=== PATIENT | female | born 1965 | race Caucasian/White ===

== ENCOUNTER → 2018-03-20 10:31 | Outpatient (CLI) | payer OTHER, MEDICAID, SELFPAY ==
--- NOTE | 2018-03-20 10:35 | DI.RAD.S_ITS ---
PROCEDURE: XR CHEST 2V INDICATIONS: MODERATE PERSISTENT ASTHMA TECHNIQUE: 2 views of the chest were acquired. COMPARISON: [facility], , CHEST 2 VIEW, 01/26/2017, 11:52. FINDINGS: Surgical changes and devices: None. Lungs and pleura: No pleural effusions or pneumothorax. Lungs are clear. Lungs are hyperinflated. Mediastinum: Mediastinal contours are normal. Heart size is normal. Bones and chest wall: No suspicious bony abnormalities. Soft tissues appear unremarkable. IMPRESSION: No acute pulmonary process. Dictated by: Sailaja Vieyra M.D. on 03/20/2018 at 15:43 Approved by: Sailaja Vieyra M.D. on 03/20/2018 at 15:44
[2018-03-20 12:12] LABS: Add Manual Diff / Slide Review NO; Basophils Percent Auto 0.9 % (0-2); Hematocrit 46.3 % (36-46); Hemoglobin 16.1 g/dL (12.0-16.0); Lymphocytes Percent Auto 18.3 % (25-40); Mean Corpuscular HGB Conc 34.7 % (30-36); Mean Corpuscular Hemoglobin 32.4 PG (26-34); Mean Corpuscular Volume 93.2 fL (80-100); Monocytes Percent Auto 5.5 % (3-14); Neutrophils Absolute Auto 3900 /uL (3000-5900); Neutrophils Percent Auto 51.7 % (50-75); Platelet Count 361 X10^3/uL (150-400); Red Blood Cell Count 4.97 X10^6/uL (4.0-5.2); Red Cell Distribution Width 12.6 % (11.6-14.8); White Blood Cell Count 7.6 X10^3/uL (4.5-11.0)
[2018-03-20 12:13] LABS: Eosinophils Percent Auto 23.6 % (2-4)
== END ==
PROVIDERS: PCP Internal Medicine; Visit Provider Internal Medicine
DX: J45.40 Moderate persistent asthma, uncomplicated (principal)
CPT/HCPCS: 36415; 71046; 85025

== ENCOUNTER 2018-09-04 14:47 | Emergency (ER) | payer OTHER, MEDICAID, SELFPAY ==
[2018-09-04 15:01] VITALS: BP 155/98; PULSE 94; RESP 18; TEMP 36.7; O2SAT 94; BMI 26.6
--- NOTE | 2018-09-04 15:14 | ED.SOB ---
HPI - SOB/Dyspnea General Chief Complaint: Shortness of Breath/Dyspnea Stated Complaint: DIFICULTY BREATHING Time Seen by Provider: 09/04/18 15:06 Source: patient Mode of arrival: ambulatory Limitations: no limitations History of Present Illness 53-year-old female comes emergency department with complaint shortness of breath patient states that she has asthma she states her asthma symptoms have been problematic for about 5 months she has been feeling short of breath. Patient 3 doses of prednisone the last 1 being a month ago. She feels better when she has the prednisone but once she stops that she becomes symptomatic again. She has Serevent at home she was using QVAR and she felt well controlled at that time. But it became too expensive with her insurance and she can't afford a steroid inhaler. She denies any fevers, she has had some nasal congestion but states she also has seasonal allergies. She does not take any antihistamine daily. Patient states that she feels tight in her chest. It is worse with exertion but stays also even when she is seated. Even at night time she has a hard time. Patient continues to have cough mostly with clear sputum at times. No hemoptysis. No swelling in her lower extremities. Her parents both had coronary artery disease and at age 84 of a stroke and her father at 73 of a stroke. She has 7 siblings none of whom have any heart disease, lung disease for blood clots that she is aware of. She does smoke she does not drink alcohol or use any street drugs. She does not have any other past medical history denies any prior surgeries. Barbara Dumont as her primary care. Related Data Home Medications Medication Instructions Recorded Confirmed salmeterol [Serevent Diskus] 1 puff INHALATION BID 09/04/18 09/04/18 Previous Rx's Medication Instructions Recorded albuterol sulfate 2 puff INHALATION Q4-6H PRN #8 gram 09/04/18 beclomethasone dipropionate [Qvar 1 puff INHALATION BID #10.6 gram 09/04/18 RediHaler] prednisone See Rx Instructions .ROUTE 09/04/18 .COMPLEX #28 tab Allergies Allergy/AdvReac Type Severity Reaction Status Date / Time No Known Drug Allergies Allergy Verified 09/04/18 15:01 Review of Systems Review of Systems ROS Unobtainable: All systems reviewed & are unremarkable except as noted in HPI and below Constitutional Denies chills, Denies fever(s), Denies lethargy and Denies weakness ENT Ears, Nose, Mouth, and Throat: Reports nasal congestion and Denies sinus pressure Cardiovascular Denies chest pain, Denies chest pain at rest, Denies diaphoresis, Denies syncope, Denies pedal edema, Denies edema, Denies irregular heart rhythm, Denies lightheadedness, Denies palpitations, Reports dyspnea, Reports dyspnea on exertion and Denies orthopnea Respiratory Denies change in phlegm color, Denies chest congestion, Reports cough, Denies excessive phlegm production, Denies pain on inspiration, Denies pain with cough, Reports dyspnea, Reports dyspnea on exertion and Reports wheezing Gastrointestinal Gastrointestinal: Denies abdominal pain, Denies change in bowel habits, Denies diarrhea, Denies nausea and Denies vomiting Neurologic Denies syncope and Denies weakness Endocrine Denies palpitations Allergic/Immunologic Reports wheezing PFSH Medical History Asthma (Chronic) Social History Smoking Status: Never smoker Family History Mother No problems noted. Father No problems noted. Social History Smoking Status: Never smoker substance use type: does not use Exam Narrative Exam Narrative: GEN: well nourished, well appearing female, alert and oriented x 3, patient appears to be in mild distress. Patient is tearful on exam. HEENT: Atraumatic, pupils are equal round reactive to light, extraocular movements are intact, nares are clear, TMs are clear with no fluid, there is no conjunctival pallor. Throat is clear without any exudates, erythema, tonsillar enlargement or uvular deviation HEART: Regular rate and rhythm without murmur, clicks, rubs. LUNGS:Lungs clear to auscultation, no wheezes, rales, crackles, chest moves symmetrically, no tachypnea, no accessory muscle use. Speaks in full sentences. ABD:bowel sounds normal, soft, non-tender, no guarding, rebound, rigidity, no masses noted, no hepatosplenomegaly :No CVA tenderness MSCL: Non-tender, no muscle atrophy, muscles strength 5/5 upper and lower extremities, full range of motion, normal gait NEURO:CN 2-12 intact, sensation normal. Initial Vital Signs Initial Vital Signs: Vital Signs Temperature 98.1 F 09/04/18 15:01 Pulse Rate 94 H 09/04/18 15:01 Respiratory Rate 18 09/04/18 15:01 Blood Pressure 155/98 H 09/04/18 15:01 Pulse Oximetry 94 09/04/18 15:01 Scores HEART Score Heart Score history: Slightly Suspicious Heart Score EKG: Normal Heart Score Age: 45-64 years old Heart Score risk factors: 1-2 risk factors Heart Score troponin: < or = to normal limit Heart Score Total: 2 Course Orders Ordered: ED Orders 09/04/18 15:16 XR chest 2V Stat EKG-12 Lead Stat 09/04/18 15:35 B Type Natriuretic Peptide Stat Basic Metabolic Panel Stat Complete Blood Count AUTO DIFF Stat D Dimer Stat Troponin & CK Cardiac Panel Stat Discontinued Medications Albuterol/Ipratropium (Duoneb) 3 ml INH NOW ONE Stop: 09/04/18 15:31 Last Admin: 09/04/18 15:47 Dose: 3 ml Methylprednisolone (Solu-Medrol 125 Mg Vial) 125 mg IV NOW ONE Stop: 09/04/18 15:31 Last Admin: 09/04/18 15:45 Dose: 125 mg Vital Signs - 8 hr 09/04/18 15:01 09/04/18 15:51 09/04/18 16:15 Temperature 98.1 F Pulse Rate 94 H 73 72 Respiratory Rate 18 16 Blood Pressure 155/98 H Blood Pressure [Right Arm] 151/77 H Pulse Oximetry 94 96 95 09/04/18 17:00 09/04/18 17:25 Temperature Pulse Rate 73 76 Respiratory Rate 18 Blood Pressure 124/67 Blood Pressure [Right Arm] 124/67 Pulse Oximetry 93 95 MDM - SOB/Dyspnea Lab Data Attestation: I reviewed the patient's lab results. Result diagrams: 09/04/18 15:35 09/04/18 15:35 Lab Results 09/04/18 09/04/18 09/04/18 Range/Units 15:35 15:35 15:35 WBC 7.7 (4.5-11.0) X10^3/uL RBC 4.78 (4.0-5.2) X10^6/uL Hgb 15.2 (12.0-16.0) g/dL Hct 43.8 (36-46) % MCV 91.5 (80-100) fL MCH 31.7 (26-34) PG MCHC 34.6 (30-36) % RDW 13.3 (11.6-14.8) % Plt Count 356 (150-400) X10^3/uL Neut % (Auto) Not Reportable Lymph % (Auto) Not Reportable Thomas % (Auto) Not Reportable Eos % (Auto) Not Reportable Baso % (Auto) Not Reportable Lymph # (Auto) Not Reportable Thomas # (Auto) Not Reportable Baso # (Auto) Not Reportable Total Counted 100 Seg Neutrophils % 49.0 (38-70) % Band Neutrophils % 1.0 L (3-7) % Lymphocytes % (Manual) 21.0 L (25-45) % Monocytes % (Manual) 6.0 (2-11) % Eosinophils % (Manual) 23.0 H (2-4) % Neutrophils # (Manual) 3850 (6237-8487) /uL RBC Morphology Normal morphology D-Dimer < 200 (<230) ng/mL Sodium 139 (137-145) mmol/L Potassium 4.1 (3.4-5.1) mmol/L Chloride 104 (98-107) mmol/L Carbon Dioxide 24 (22-32) mmol/L BUN 8 (7-17) mg/dL Creatinine 0.70 (0.52-1.04) mg/dL Estimated GFR > 60.0 (>60) mL/min BUN/Creatinine Ratio 11.4 (6-22) Glucose 103 H (70-100) mg/dL Calcium 9.8 (8.4-10.2) mg/dL Total Creatine Kinase 57 (30-135) U/L CK-MB (CK-2) TNP CK-MB (CK-2) Rel Index TNP Troponin I < 0.012 (0.01-0.034) ng/mL B-Natriuretic Peptide < 100 (<100) Imaging Data Chest x-ray: Radiologist's impression: Chart Viewer Diagnostics DATE TYPE STATUS AUTHOR Hx 09/04/18 15:16 Sailaja Vieyra 03/20/18 10:35 Sailaja Vieyra Angela R 53, F0 1965 REG ER, ED.LOC - Main ED: R10 165.1cm 72.575kg BMI: 26.6kg/m? Shortness of Breath/Dyspnea Search Chart No Data to Display Today 15:01 Margarita Ramirez F [address] [address] XRay Report Signed Patient: Margarita Ramirez RMR#: [id number] : 1965Acct:[id number] Age/Sex: 53 / FDate of Service: 09/04/18 Loc: ED Accession Number: [id number] Procedure: XR chest 2V Ordering Provider: Coty Mcfarland D.O. PROCEDURE: XR CHEST 2V INDICATIONS: shortness of breath TECHNIQUE: 2 views of the chest were acquired. COMPARISON: [facility], , XR CHEST 2V, 03/20/2018, 10:35. FINDINGS: Surgical changes and devices: None. Lungs and pleura: Lungs are clear. No pleural effusions or pneumothorax. Mediastinum: Mediastinal contours are normal. Heart size is normal. Bones and chest wall: No suspicious bony abnormalities. Soft tissues appear unremarkable. IMPRESSION: No acute pulmonary process. Dictated by: Sailaja Vieyra M.D. on 09/04/2018 at 15:44 Approved by: Sailaja Vieyra M.D. on 09/04/2018 at 15:44 ECG Data Attestation: I personally reviewed and interpreted this ECG as follows: Prior ECG tracings: not available for review Interpretation: Sinus rhythm with a rate of 91 p.r. interval 128 QRS 82 and QTC of 395. No ST elevation or depression appreciated MDM Narrative Medical decision making narrative: After discussion with the patient I suspect her dyspnea is her asthma exacerbation. She was her description well controlled while she was on a steroid inhaler. Patient's lab work does not show any acute alterations her chest x-ray is clear. She does not have any risk factors for PE at this time. Patient's heart score is by her description she improves when she is on steroids and steroid inhaler suspect that her asthma is just not well controlled. Patient does have insurance and states that they will cover steroid inhalers for a month or 2 and then deny her coverage. Discussed to continue with her physician to facilitate prior office for her medication. In the meantime will do another short dose of prednisone but we did discuss that the risks for recurrent prednisone such as osteoporosis and other issues it is not a good long-term solution. Patient states she is also out of her regular albuterol which was refilled as well. Discharge Plan Departure Patient Disposition: Home Clinical Impression: Asthma with exacerbation Discharge Date/Time: 09/04/18 17:26 Interventions: ED Discharge Assessment Last Done: 09/04/18 17:25 Instructions: DI for Asthma -- Adult Activity Restrictions/Additional Instructions: Follow up with your primary care physician in next 3-5 days for recheck. Continue albuterol every 4 hours as needed for shortness of breath. Take steroids as prescribed until gone. Continue zyrtec once daily Return to the ER for fevers greater than 100.4F, worsening shortness of breath, chest pain or pressure, passing out, persistent vomiting, swelling of her lower extremities or other new or concerning symptoms. Prescriptions: New prednisone 10 mg tablet See Rx Instructions .ROUTE .COMPLEX Qty: 28 RF: 0 Qvar RediHaler 40 mcg/actuation HFA aerosol breath activated 1 puff INHALATION BID Qty: 10.6 RF: 0 albuterol sulfate 90 mcg/actuation HFA aerosol inhaler 2 puff INHALATION Q4-6H PRN (Reason: shortness of breath or wheezing) Qty: 8 RF: 0 No Action Serevent Diskus 50 mcg/dose blister with device 1 puff Inhalation BID RF: 0 Referrals: Barbara Dumont MD [Primary Care Provider] -
[2018-09-04] MEDS: methylPREDNISolone 125 MG/2 ML VIAL IV (15:45)
[2018-09-04] MEDS: ALBUTEROL/IPRATROPIUM 3 ML AMPUL INH (15:47)
[2018-09-04 15:50] LABS: Hematocrit 43.8 % (36-46); Hemoglobin 15.2 g/dL (12.0-16.0); Mean Corpuscular HGB Conc 34.6 % (30-36); Mean Corpuscular Hemoglobin 31.7 PG (26-34); Mean Corpuscular Volume 91.5 fL (80-100); Platelet Count 356 X10^3/uL (150-400); Red Blood Cell Count 4.78 X10^6/uL (4.0-5.2); Red Cell Distribution Width 13.3 % (11.6-14.8); White Blood Cell Count 7.7 X10^3/uL (4.5-11.0)
[2018-09-04 15:51] VITALS: PULSE 73; RESP 16; O2SAT 96
[2018-09-04 15:52] LABS: Add Manual Diff / Slide Review YES
[2018-09-04 15:56] LABS: BUN Creatinine Ratio 11.4 (6-22); Blood Urea Nitrogen 8 mg/dL (7-17); Calcium 9.8 mg/dL (8.4-10.2); Carbon Dioxide 24 mmol/L (22-32); Chloride 104 mmol/L (98-107); Creatine Kinase 57 U/L (30-135); Estimated Glomerular Filt Rate > 60.0 mL/min (>60); Glucose 103 mg/dL (70-100); HEMOLYSIS < 15 (0-50); Potassium 4.1 mmol/L (3.4-5.1); Sodium 139 mmol/L (137-145)
[2018-09-04 15:58] LABS: D Dimer < 200 ng/mL (<230)
[2018-09-04 16:01] LABS: B Type Natriuretic Peptide < 100 (<100)
[2018-09-04 16:08] LABS: Troponin I < 0.012 ng/mL (0.01-0.034)
[2018-09-04 16:09] LABS: Neutrophils Absolute Manual 3850 /uL (3000-5900); Total Cells Counted 100
[2018-09-04 16:10] LABS: RBC Morphology Normal Morphology
[2018-09-04 16:15] VITALS: BP 151/77; PULSE 72; O2SAT 95
[2018-09-04 17:00] VITALS: BP 124/67; PULSE 73; O2SAT 93
[2018-09-04 17:25] VITALS: BP 124/67; PULSE 76; RESP 18; O2SAT 95
== END 2018-09-04 17:26 | disposition home or self-care (01) ==
PROVIDERS: Emergency Provider Emergency Medicine; Family Provider Internal Medicine; PCP Internal Medicine
DX: J45.901 Unspecified asthma with (acute) exacerbation (principal)
CPT/HCPCS: 36591; 71046; 80048; 82550; 83880; 84484; 85025; 85379; 93005; 94640; 96374; 99283; 99285; J2930

== ENCOUNTER → 2019-03-16 09:14 | Outpatient (CLI) | payer OTHER, MEDICAID, SELFPAY | PROVIDERS: Family Provider Internal Medicine; PCP Internal Medicine; Visit Provider Physician Assistant | DX: R30.0 Dysuria (principal) | CPT/HCPCS: 87086 ==

== ENCOUNTER → 2020-06-09 12:33 | Outpatient (CLI) | payer OTHER, MEDICAID, SELFPAY | PROVIDERS: Family Provider Internal Medicine; PCP Internal Medicine; Visit Provider Physician Assistant | DX: R30.0 Dysuria (principal) | CPT/HCPCS: 87077; 87086; 87186 ==

== ENCOUNTER → 2020-10-14 07:34 | Outpatient (CLI) | payer OTHER, MEDICAID, SELFPAY | PROVIDERS: Family Provider Internal Medicine; PCP Internal Medicine; Visit Provider Student in an Organized Health Care Education/Training Program | DX: R30.0 Dysuria (principal) | CPT/HCPCS: 87077; 87086; 87186 ==

== ENCOUNTER → 2021-08-19 09:57 | Outpatient (CLI) | payer OTHER, MEDICAID, SELFPAY | PROVIDERS: Family Provider Internal Medicine; PCP Internal Medicine; Visit Provider Nurse Practitioner Family | DX: R30.0 Dysuria (principal) | CPT/HCPCS: 81002; 87077; 87086; 87186 ==

== ENCOUNTER → 2021-12-23 08:34 | Outpatient (CLI) | payer OTHER, MEDICAID, SELFPAY | PROVIDERS: Family Provider Internal Medicine; PCP Internal Medicine; Visit Provider Physician Assistant | DX: N39.0 Urinary tract infection, site not specified (principal) | CPT/HCPCS: 81002; 87077; 87086; 87185; 87186 ==

== ENCOUNTER → 2022-06-15 09:21 | Outpatient (CLI) | payer OTHER, MEDICAID, SELFPAY | PROVIDERS: Visit Provider Registered Nurse | DX: R30.0 Dysuria (principal) | CPT/HCPCS: 81002; 87077; 87086; 87186 ==

== ENCOUNTER 2022-07-29 22:06 | Inpatient (IN) | payer OTHER, MEDICAID, SELFPAY ==
--- NOTE | 2022-07-29 22:10 | DI.RAD.S_ITS ---
PROCEDURE: XR HIP W PEL IF DONE LT 2V INDICATIONS: fall with pain in hip TECHNIQUE: AP pelvis with lateral view(s) of the left hip(s). COMPARISON: [facility], , [facility] 2V W PEL IF PERFORMED, 07/22/2016, 14:04. FINDINGS: Bones: Nearly nondisplaced intertrochanteric left hip fracture. No femoroacetabular joint dislocation. There are severe degenerative changes in the right femoroacetabular joint with flattening of the femoral head, [id number], subcortical sclerosis and spurring. No visible pelvic fractures. Soft tissues: The visualized bowel gas pattern is normal. No suspicious soft tissue calcifications. IMPRESSION: 1. Nondisplaced intertrochanteric left hip fracture. 2. 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 Dictated by: Kaleigh Pulido M.D. on 07/30/2022 at 0:02 Approved by: Kaleigh Pulido M.D. on 07/30/2022 at 0:03
[2022-07-29 22:11] VITALS: BP 160/79; PULSE 78; PULSE 80; RESP 16; TEMP 36.7; O2SAT 99; BMI 29.2
[2022-07-29 22:31] VITALS: PULSE 77; O2SAT 97
--- NOTE | 2022-07-29 22:41 | ED.LOWEXIN ---
HPI - Extremity Injury (Lower) General Chief Complaint: Extremity Injury, Lower Stated Complaint: GLF/Hip Pain Time Seen by Provider: 07/29/22 22:34 Source: patient Mode of arrival: EMS Limitations: no limitations History of Present Illness HPI Narrative: This is a 57-year-old female with history of asthma who uses Advair inhaler, patient was at a birthday [employer] she states she was seated in a chair they were wrestling with 2 boys and she fell out of the chair on her left hip onto hardwood floor. She states immediate pain. No numbness or tingling. Any sort of movement is painful. She denies other injuries. Denies hitting her head no neck or back pain. No chest pain or shortness of breath, no nausea or vomiting, no GI or urinary symptoms. She states no pain or injury to her other extremities or further down in her leg. Patient took some ibuprofen. She has not had any other pain medication. No tobacco, occasional alcohol, no illicit. She states she is supposed to her right hip repaired in the future because of cartilage issues. Related Data Home Medications Medication Instructions Recorded Confirmed ferrous sulfate 1 tab PO DAILY 07/29/22 07/30/22 fluticasone propionate 115 2 puff inhalation Q4H PRN 07/29/22 07/29/22 mcg-salmeterol 21 mcg/actuation Shortness Of Breath Or Wheezing HFA inhaler (Advair HFA) magnesium 100 mg BEDTIME leg cramps 07/29/22 07/29/22 Allergies Allergy/AdvReac Type Severity Reaction Status Date / Time No Known Drug Allergies Allergy Verified 06/15/22 09:28 Review of Systems Review of Systems ROS Unobtainable: All systems reviewed & are unremarkable except as noted in HPI and below Patient History Medical History Asthma Surgical History No history of previous surgery Family History Mother Diabetes mellitus Father No problems noted. Social History household members: spouse Smoking Status: Never smoker substance use type: does not use Smoking Status: Never smoker alcohol intake frequency: a few times a week Substance Use Type: does not use Exam Narrative Exam Narrative: GEN: Patient appears in ttvn-es-ztxaiian distress. HEAD: No evidence of trauma, no raccoon/Chu sign. NECK: Nontender, painless range of motion, trachea midline Negative for Nexus criteria, there is no midline line tenderness, distracting injury, altered mental status, neuro deficit, recent EtOH. EYES: PERRLA, EOMI ENT: External inspection normal, trachea is midline, Nares are clear, no septal hematoma, no dental or oral injury, airway is normal and with normal occlusion, No bony tenderness RESP: Chest is nontender and has symmetric movement, no ecchymosis, breath sounds are normal no crackles, wheezes or rales CVS: Heart sounds are normal, no murmur noted, No JVD. ABG/GI: Nontender, soft, normal bowel sounds, no distention, no organomegaly, pelvic rock is negativ NEURO: Oriented AOx3, neuro is grossly intact, sensation and motor is normal all 4 extremities moving, cranial nerves II through XII are intact, GCS is 15 PSYCH: Normal mood and affect SKIN: Intact, warm and dry, no crepitus and without decubitus BACK: No CVA tenderness, no vertebral tenderness, no step-off's, no crepitus EXT: Atraumatic except for tenderness over the left hip. No obvious deformity. Patient does not have any bony tenderness of the lower left leg, knee ankle or foot. She has normal dorsal and plantar flexion. Normal sensation 2+ dorsalis pedis pull. No pedal edema, normal color and temperature, normal range of motion of extremities with normal tendon exam, 2+ pulses in all four extremities Initial Vital Signs Initial Vital Signs: Vital Signs Temperature 98.1 F 07/29/22 22:11 Pulse Rate 78 07/29/22 22:11 Respiratory Rate 16 07/29/22 22:11 Blood Pressure 160/79 H 07/29/22 22:11 Pulse Oximetry 99 07/29/22 22:11 Oxygen Delivery Method 07/29/22 22:11 Course Orders Ordered: ED Orders 07/29/22 22:07 CBC Auto Diff [Complete Blood Count AUTO DIFF] Stat CMP [Comprehensive Metabolic Panel] Stat Lipase Stat 07/29/22 22:10 XR hip w pel if done LT 2V Stat 07/29/22 22:47 COVID19 -Nasal RAPID/Pre-Proc Stat 07/29/22 23:15 Urine Culture Stat Urine Microscopic Stat 07/29/22 23:53 Consult to Physician Routine 07/30/22 00:05 Urinalysis and Microscopic Stat 07/30/22 05:00 Complete Blood Count AUTO DIFF DAILY Comprehensive Metabolic Panel DAILY Magnesium DAILY Prothrombin Time INR Routine 07/31/22 05:00 Complete Blood Count AUTO DIFF DAILY Comprehensive Metabolic Panel DAILY Magnesium DAILY Acetaminophen (Acetaminophen 325 Mg Tablet) 650 mg PO Q6H PRN PRN Reason: Fever/Mild Pain (1-3) Albuterol (Albuterol 1.25 Mg/3 Ml Neb (Pediatric)) 1.25 mg INH RTQ4HR PRN PRN Reason: Shortness Of Breath Or Wheezing Diazepam (Diazepam 10 Mg/2 Ml Syringe) 2 mg IV Q4HR PRN PRN Reason: Spasms Hydromorphone HCl (Hydromorphone 1 Mg Inj) 1 mg IV Q3H PRN PRN Reason: Pain, Moderate (4-6) Last Admin: 07/30/22 01:13 Dose: 1 mg Documented By: MS Lactated Ringer's (Lactated Ringers) 1,000 mls @ 100 mls/hr IV CONT [facility] Last Admin: 07/30/22 00:28 Dose: 100 mls/hr Documented By: MS Ceftriaxone Sodium 1,000 mg/ (Sodium Chloride) 100 mls @ 200 mls/hr IV Q24H [facility] Last Admin: 07/30/22 01:51 Dose: 200 mls/hr Documented By: MS Morphine Sulfate (Morphine 4 Mg/Ml Inj) 4 mg IV Q3H PRN PRN Reason: Pain, Severe (7-10) Naloxone HCl (Naloxone 0.4 Mg/Ml Vial) 0.2 mg IV Q2MIN PRN PRN Reason: Opiate Reversal Non-Formulary Medication (Fluticasone Propion-Salmeterol [Advair Hfa]) 2 puff INHALATION BID [facility] Last Admin: 07/30/22 00:57 Dose: Not Given Documented By: Ondansetron HCl (Ondansetron 4 Mg/2 Ml Inj) 4 mg IV Q6HR PRN PRN Reason: Nausea And Vomiting Oxycodone HCl (Oxycodone Ir 5 Mg Tablet) 5 mg PO Q3H PRN PRN Reason: Pain, Moderate (4-6) Discontinued Medications Diazepam (Diazepam 10 Mg/2 Ml Syringe) 2 mg IV NOW ONE Stop: 07/30/22 00:43 Last Admin: 07/30/22 01:13 Dose: 2 mg Documented By: Hydromorphone HCl (Hydromorphone 0.5 Mg Inj) 0.5 mg IV Q4H PRN PRN Reason: Breakthrough Pain Morphine Sulfate (Morphine 4 Mg/Ml Inj) 4 mg IV NOW ONE Stop: 07/29/22 22:42 Last Admin: 07/29/22 22:46 Dose: 4 mg Documented By: MADIHA Morphine Sulfate (Morphine 2 Mg/Ml Inj) 2 mg IV Q3H PRN PRN Reason: Pain, Severe (7-10) Last Admin: 07/30/22 00:47 Dose: 2 mg Documented By: Ondansetron HCl (Ondansetron 4 Mg/2 Ml Inj) 4 mg IV NOW ONE Stop: 07/29/22 22:42 Last Admin: 07/29/22 22:46 Dose: 4 mg Documented By: MADIHA Vital Signs Vital signs: Vital Signs - 8 hr 07/29/22 22:11 07/29/22 22:11 07/29/22 22:31 Temperature 98.1 F Pulse Rate 78 80 77 Respiratory Rate 16 Blood Pressure 160/79 H Pulse Oximetry 99 99 97 Oxygen Delivery Method Room Air 07/29/22 23:00 07/29/22 23:30 07/29/22 23:36 Temperature Pulse Rate 74 70 Respiratory Rate Blood Pressure 134/72 Pulse Oximetry 98 95 Oxygen Delivery Method 07/29/22 23:36 07/30/22 00:00 07/30/22 00:00 Temperature Pulse Rate 70 69 Respiratory Rate 16 16 Blood Pressure 132/72 Pulse Oximetry 96 95 Oxygen Delivery Method MDM - Extremity Injury (Lower) Lab Data 07/29/22 22:07 07/29/22 22:07 Labs: Lab Results 07/29/22 07/29/22 07/29/22 Range/Units 22:07 22:07 22:47 WBC 7.8 (4.5-11.0) X10^3/uL RBC 4.39 (4.0-5.2) X10^6/uL Hgb 14.1 (12.0-16.0) g/dL Hct 41.0 (36-46) % MCV 93.4 (80-100) fL MCH 32.2 (26-34) PG MCHC 34.5 (30-36) % RDW 13.2 (11.6-14.8) % Plt Count 284 (150-400) X10^3/uL Neut % (Auto) 59.4 (50-75) % Lymph % (Auto) 26.6 (25-40) % Thurston % (Auto) 6.4 (3-14) % Eos % (Auto) 6.9 H (2-4) % Baso % (Auto) 0.7 (0-2) % Neut # (Auto) 4700 (0900-3885) /uL Lymph # (Auto) 2100 (0182-2862) /uL Thurston # (Auto) 500 (0-900) /uL Eos # (Auto) 500 H (0-450) /uL Baso # (Auto) 100 (0-100) /uL Sodium 137 (137-145) mmol/L Potassium 3.7 (3.4-5.1) mmol/L Chloride 101 (98-107) mmol/L Carbon Dioxide 23 (22-32) mmol/L BUN 19 H (7-17) mg/dL Creatinine 1.16 H (0.52-1.04) mg/dL Estimated GFR 54 L (>60) mL/min BUN/Creatinine Ratio 16.4 (6-22) Glucose 124 H (70-100) mg/dL Calcium 9.3 (8.4-10.2) mg/dL Total Bilirubin 0.4 (0.2-1.3) mg/dL AST 24 (14-36) IU/L ALT 22 (<35) IU/L Alkaline Phosphatase 68 (38-126) U/L Total Protein 7.5 (6.3-8.2) g/dL Albumin 4.7 (3.5-5.0) g/dL Globulin 2.8 (1.7-4.1) g/dL Albumin/Globulin Ratio 1.7 (1.0-2.8) Lipase 49 (23-300) U/L Urine RBC (0-5/HPF) Urine WBC (0-5/HPF) Ur Squamous Epith Cells (0-5/HPF) Urine Bacteria (None) Ur Culture Indicated? SARS-CoV-2 (PCR) Negative (Negative) 07/29/22 Range/Units 23:15 WBC (4.5-11.0) X10^3/uL RBC (4.0-5.2) X10^6/uL Hgb (12.0-16.0) g/dL Hct (36-46) % MCV (80-100) fL MCH (26-34) PG MCHC (30-36) % RDW (11.6-14.8) % Plt Count (150-400) X10^3/uL Neut % (Auto) (50-75) % Lymph % (Auto) (25-40) % Thurston % (Auto) (3-14) % Eos % (Auto) (2-4) % Baso % (Auto) (0-2) % Neut # (Auto) (1254-6482) /uL Lymph # (Auto) (8063-0254) /uL Thurston # (Auto) (0-900) /uL Eos # (Auto) (0-450) /uL Baso # (Auto) (0-100) /uL Sodium (137-145) mmol/L Potassium (3.4-5.1) mmol/L Chloride (98-107) mmol/L Carbon Dioxide (22-32) mmol/L BUN (7-17) mg/dL Creatinine (0.52-1.04) mg/dL Estimated GFR (>60) mL/min BUN/Creatinine Ratio (6-22) Glucose (70-100) mg/dL Calcium (8.4-10.2) mg/dL Total Bilirubin (0.2-1.3) mg/dL AST (14-36) IU/L ALT (<35) IU/L Alkaline Phosphatase (38-126) U/L Total Protein (6.3-8.2) g/dL Albumin (3.5-5.0) g/dL Globulin (1.7-4.1) g/dL Albumin/Globulin Ratio (1.0-2.8) Lipase (23-300) U/L Urine RBC 0-1/hpf (0-5/HPF) Urine WBC 5-10/hpf H (0-5/HPF) Ur Squamous Epith Cells 10-30 /hpf H (0-5/HPF) Urine Bacteria Many (>30) H (None) Ur Culture Indicated? Specimen cultured SARS-CoV-2 (PCR) (Negative) Imaging Data Extremity x-ray #1: My Impression: Fracture left hip thru greater trochanter at angle MDM Narrative Medical decision making narrative: This is a 57-year-old female with complaint of left hip pain after fall from chair onto hardwood floor. Patient appears to have fracture on my preliminary review of x-ray. She has pain. She has a history of asthma and uses Advair inhaler she is not currently having any symptoms and denies any other injuries. Her exam she is neurovascularly intact. Baseline labs were obtained. Consultation with Orthopedic surgery, Dr. Sneha Martin she plans for OR in the morning. NPO overnight. Plan for admission to hospitalist. Plan for admission. Spoke with hospitalist, BALDEV Payton who accepts admission. Noted urine has white cells but also has tend to 30 squamous epithelials so I would not start antibiotics patient is asymptomatic suspect it may be contaminant. Reviewed hip fracture labs creatinine slightly elevated from prior in 2019 but this may be her new baseline will start fluids at 100 mL LR after discussion with hospitalist. Patient has had Zofran morphine for pain control been tolerating well. CBC, electrolytes, LFTs and COVID are negative. Discharge Plan Departure Patient Disposition: Admitted As Inpatient Clinical Impression: Closed fracture of left hip Admit Date/Time: 07/30/22 00:03 Admit Provider: Leila Payton
[2022-07-29 22:42] LABS: Add Manual Diff / Slide Review NO; Basophils Absolute Auto 100 /uL (0-100); Basophils Percent Auto 0.7 % (0-2); Eosinophils Absolute Auto 500 /uL (0-450); Eosinophils Percent Auto 6.9 % (2-4); Hemoglobin 14.1 g/dL (12.0-16.0); Lymphocytes Absolute Auto 2100 /uL (1100-4500); Lymphocytes Percent Auto 26.6 % (25-40); Mean Corpuscular HGB Conc 34.5 % (30-36); Mean Corpuscular Hemoglobin 32.2 PG (26-34); Mean Corpuscular Volume 93.4 fL (80-100); Monocytes Absolute Auto 500 /uL (0-900); Monocytes Percent Auto 6.4 % (3-14); Neutrophils Absolute Auto 4700 /uL (1500-7000); Neutrophils Percent Auto 59.4 % (50-75); Platelet Count 284 X10^3/uL (150-400); Red Blood Cell Count 4.39 X10^6/uL (4.0-5.2); Red Cell Distribution Width 13.2 % (11.6-14.8); White Blood Cell Count 7.8 X10^3/uL (4.5-11.0)
[2022-07-29] MEDS: ONDANSETRON 4 MG/2 ML INJ IV (22:46)
[2022-07-29] MEDS: MORPHINE 4 MG/ML INJ IV (22:46)
[2022-07-29 22:50] LABS: Alanine Aminotransferase 22 IU/L (<35); Albumin 4.7 g/dL (3.5-5.0); Albumin Globulin Ratio 1.7 (1.0-2.8); Alkaline Phosphatase 68 U/L (38-126); Aspartate Aminotransferase 24 IU/L (14-36); BUN Creatinine Ratio 16.4 (6-22); Bilirubin Total 0.4 mg/dL (0.2-1.3); Blood Urea Nitrogen 19 mg/dL (7-17); Calcium 9.3 mg/dL (8.4-10.2); Carbon Dioxide 23 mmol/L (22-32); Chloride 101 mmol/L (98-107); Estimated Glomerular Filt Rate 54 mL/min (>60); Globulin 2.8 g/dL (1.7-4.1); Glucose 124 mg/dL (70-100); HEMOLYSIS < 15 (0-50); Lipase 49 U/L (23-300); Potassium 3.7 mmol/L (3.4-5.1); Sodium 137 mmol/L (137-145); Total Protein 7.5 g/dL (6.3-8.2)
[2022-07-29 23:00] VITALS: PULSE 74; O2SAT 98
[2022-07-29 23:30] VITALS: PULSE 70; O2SAT 95
[2022-07-29 23:31] LABS: COVID19 -Nasal RAPID Negative (Negative)
[2022-07-29 23:35] LABS: RBC Urine 0-1/HPF (0-5/HPF); Squamous Epithelial Cell Urine 10-30 /HPF (0-5/HPF); WBC Urine 5-10/HPF (0-5/HPF)
[2022-07-29 23:36] VITALS: BP 134/72; PULSE 70; RESP 16; O2SAT 96
[2022-07-29 23:36] LABS: Bacteria Urine Many (>30); Culture Indicated Urine Specimen Cultured
[2022-07-30] VITALS (18 sets, daily range): BP systolic 92–135; BP diastolic 45–73; PULSE 64–83; RESP 11–19; TEMP 35.9–37.2; O2SAT 94–99; BMI 30.4
--- NOTE | 2022-07-30 | DI.RAD.S_ITS ---
PROCEDURE: XR HIP W PEL IF DONE LT 2V INDICATIONS: POST OP TECHNIQUE: AP pelvis and lateral view of the left hip acquired. COMPARISON: [facility], [place], XR HIP W PEL IF DONE LT 2V, 07/30/2022, 12:32. FINDINGS: Bones: Patient is status post left hip arthroplasty, with hardware components in expected positions. The hip joint appears congruent. The visualized bony structures appear intact. Soft tissues: Overlying postoperative changes are noted. No suspicious soft tissue densities. IMPRESSION: Postop changes from left total hip arthroplasty with anatomic left hip alignment. Dictated by: Corey Velasquez M.D. on 07/30/2022 at 15:03 Approved by: Corey Velasquez M.D. on 07/30/2022 at 15:04
[2022-07-30 00:16] LABS: Appearance Urine UA CLEAR; Bilirubin Urine UA NEGATIVE (NEGATIVE); Color Urine UA YELLOW; Glucose Urine UA NEGATIVE (Negative); Ketones Urine UA NEGATIVE (NEGATIVE); Leukocyte Esterase Urine UA NEGATIVE (NEGATIVE); Nitrite Urine UA NEGATIVE (Negative); Occult Blood Urine UA 1+ (Negative); Protein Urine UA NEGATIVE (Negative); Urobilinogen Urine UA 0.2 E.U./dL (0.2)
[2022-07-30 00:18] LABS: pH Urine UA 5.5 (4.5-8.0)
[2022-07-30 00:26] LABS: Bacteria Urine Many (>30); Culture Indicated Urine Specimen Cultured; RBC Urine 0-1/HPF (0-5/HPF); WBC Urine 0-1/HPF (0-5/HPF)
[2022-07-30] MEDS: LACTATED RINGERS 1,000 ML 100 ML IV ×2 (00:28→08:16)
[2022-07-30] MEDS: MORPHINE 2 MG/ML INJ IV (00:47)
--- NOTE | 2022-07-30 00:56 | PM.HP.1 ---
History of Present Illness History of Present Illness Date Patient Seen: 07/30/22 Time Patient Seen: 00:56 Chief complaint: GLF/Hip Pain Narrative: Margarita Ramirez is a 57 y.o. female with asthma and due for a right hip replacement was in her usual state of health when she was sitting, then arose from a chair and fell onto a hardwood floor on her left side, sustaining a left sided intertrochanteric hip fracture. She denies blacking out, currently her pain is not well controlled and she denies nausea. She states that she is scheduled for replacement of her right hip and has been compensating with her left leg. X-ray of the left hip shows a displaced intertrochanteric fracture of femur as visualized by myself. CBC is unremarkable, she has a mild bump in her creatinine of 1.16 previous value was normal. First UA that was done was positive for bacteria as well as squamous cells and considered to be a contaminant, 2nd UA drawn from her catheter also indicated bacteria and will be sent off for culture, COVID-19 PCR is negative. Patient History Medical History Asthma Surgical History No history of previous surgery Family & Social History Family History Mother Diabetes mellitus Father No problems noted. Safety & Behavioral: Feels Safe in Current Yes Environment Tobacco & Substance use: Smoking Status Never smoker alcohol intake frequency a few times a week Substance Use Type does not use Meds Home Medications and Allergies Home Medications Medication Instructions Recorded Confirmed Type ferrous sulfate DAILY 07/29/22 History fluticasone propionate 115 2 puff inhalation Q4H PRN 07/29/22 07/29/22 History mcg-salmeterol 21 mcg/actuation Shortness Of Breath Or Wheezing HFA inhaler (Advair HFA) magnesium 100 mg BEDTIME leg cramps 07/29/22 07/29/22 History Allergies Allergy/AdvReac Type Severity Reaction Status Date / Time No Known Drug Allergies Allergy Verified 06/15/22 09:28 Review of Systems Review of Systems ROS: Yes All systems reviewed with the patient and are negative except as otherwise documented Exam Vital Signs (past 8 hours): - 07/29/22 22:11 07/29/22 22:11 07/29/22 22:31 Temperature 98.1 F Pulse Rate 78 80 77 Respiratory Rate 16 Blood Pressure 160/79 H Pulse Oximetry 99 99 97 Oxygen Delivery Method Room Air Oxygen Flow Rate 07/29/22 23:00 07/29/22 23:30 07/29/22 23:36 Temperature Pulse Rate 74 70 Respiratory Rate Blood Pressure 134/72 Pulse Oximetry 98 95 Oxygen Delivery Method Oxygen Flow Rate 07/29/22 23:36 07/30/22 00:00 07/30/22 00:00 Temperature Pulse Rate 70 69 Respiratory Rate 16 16 Blood Pressure 132/72 Pulse Oximetry 96 95 Oxygen Delivery Method Oxygen Flow Rate 07/30/22 00:31 Temperature 98.9 F Pulse Rate 74 Respiratory Rate 19 Blood Pressure 135/71 Pulse Oximetry 94 Oxygen Delivery Method Oxygen Flow Rate 0 Oxygen Delivery Method Room Air Oxygen Flow Rate 0 Narrative Exam Narrative: Gen: Alert, oriented, well-developed 57 y.o. female, verbalizing in a great deal of pain HEENT: normocephalic, atraumatic, conjunctiva clear, sclera non-icteric, oral mucosa pink and moist Neck: supple, full ROM, no JVD, trachea is midline Resp: Lungs CTA, non-labored breathing CV: RRR, no murmur or rubs Abd: soft, non-tender, normoactive BTs Skin: no lesions or rashes, dry and intact Neuro: Alert and oriented X 4 w/no focal deficits. Speech clear and coherent. Extremities: moves all 4 extremities, is ambulatory, negative Areille?s sign Psyche: normal mood and affect. Objective Labs 07/29/22 22:07 07/29/22 22:07 Labs: Laboratory Results - last 24 hr 07/29/22 07/29/22 07/29/22 22:07 22:07 22:47 WBC 7.8 RBC 4.39 Hgb 14.1 Hct 41.0 MCV 93.4 MCH 32.2 MCHC 34.5 RDW 13.2 Plt Count 284 Neut % (Auto) 59.4 Lymph % (Auto) 26.6 [place] % (Auto) 6.4 Eos % (Auto) 6.9 H Baso % (Auto) 0.7 Neut # (Auto) 4700 Lymph # (Auto) 2100 [place] # (Auto) 500 Eos # (Auto) 500 H Baso # (Auto) 100 Sodium 137 Potassium 3.7 Chloride 101 Carbon Dioxide 23 BUN 19 H Creatinine 1.16 H Estimated GFR 54 L BUN/Creatinine Ratio 16.4 Glucose 124 H Calcium 9.3 Total Bilirubin 0.4 AST 24 ALT 22 Alkaline Phosphatase 68 Total Protein 7.5 Albumin 4.7 Globulin 2.8 Albumin/Globulin Ratio 1.7 Lipase 49 Urine Color Urine Appearance Urine pH Ur Specific [place] Urine Protein Urine Glucose (UA) Urine Ketones Urine Occult Blood Urine Nitrate Urine Bilirubin Urine Urobilinogen Ur Leukocyte Esterase Urine RBC Urine WBC Ur Squamous Epith Cells Urine Bacteria Ur Culture Indicated? SARS-CoV-2 (PCR) Negative 07/29/22 07/30/22 23:15 00:05 WBC RBC Hgb Hct MCV MCH MCHC RDW Plt Count Neut % (Auto) Lymph % (Auto) [place] % (Auto) Eos % (Auto) Baso % (Auto) Neut # (Auto) Lymph # (Auto) [place] # (Auto) Eos # (Auto) Baso # (Auto) Sodium Potassium Chloride Carbon Dioxide BUN Creatinine Estimated GFR BUN/Creatinine Ratio Glucose Calcium Total Bilirubin AST ALT Alkaline Phosphatase Total Protein Albumin Globulin Albumin/Globulin Ratio Lipase Urine Color Yellow Urine Appearance Clear Urine pH 5.5 Ur Specific [place] 1.020 Urine Protein Negative Urine Glucose (UA) Negative Urine Ketones Negative Urine Occult Blood 1+ H Urine Nitrate Negative Urine Bilirubin Negative Urine Urobilinogen 0.2 Ur Leukocyte Esterase Negative Urine RBC 0-1/hpf 0-1/hpf Urine WBC 5-10/hpf H 0-1/hpf Ur Squamous Epith Cells 10-30 /hpf H Urine Bacteria Many (>30) H Many (>30) H Ur Culture Indicated? Specimen cultured Specimen cultured SARS-CoV-2 (PCR) Assessment & Plan Assessment & Plan narrative: Margarita Ramirez is admitted for surgical management of a left intertrochanteric fracture as well as a urinary tract infection. Left intertrochanteric fracture, acute and present on admission Dr. Martin notified and plans to take her into the OR in the morning NPO after midnight LR at 100 mL/hour Pain control with Tylenol, morphine, Dilaudid and IV diazepam Urinary tract infection, acute, and present on admission She is initiated on IV ceftriaxone 1 g IV daily Asthma, chronic She will maintain on her maintenance inhaler Advair b.i.d. and albuterol nebulizers for wheezing or shortness of breath Other independent historians: none Discussion of results, plan of care with independent HCP/other: ED provider Reviewed outside records: None VTE Prophylaxis: Wells risk score 0 left sided SCD Pharmacological VTE prophylaxis contraindicated in the setting of anticipated surgery. Patient is admitted to the inpatient service due to the severity of disease, risks of further disease progression and this stay is expected to exceed 2 midnights. FEN: IV fluids: LR at 100 ml/hour, diet: NPO past midnight, labs: CBC, C/BMP, liver enzymes, Mag, PT/INR Consultants Dr. Sneha Martin, Orthopedic Surgery, care and involvement in the patient?s care is appreciated. Social determinants of health: none Dispo: likely discharge to home Code status: Full code [X] I have utilized all available immediate resources to obtain, update, or review of the patient's current medications VTE Deep Vein Thrombosis/Pulmonary Embolism Present on Admission: No MIPS - Admit I confirm the patient?s Advance Care Plan is present, Code status is documented, Surrogate decision maker is in patient?s record: Yes MIPS - DC The patient has current or prior documentation of left ventricular ejection fraction (LVEF) less than 40%, or moderate or severely depressed left ventricular systolic function.: No COVID-19 COVID-19 status: Negative Result date/Date tested (Pos, Neg/Pending): 07/29/22 Time Spent With Patient Critical Care time: I spent a total of [] minutes of critical care time on this patient's care today; this time is exclusive of procedural time.
[2022-07-30] MEDS: HYDROMORPHONE 1 MG INJ IV ×2 (01:13→04:50)
[2022-07-30] MEDS: diazePAM 10 MG/2 ML SYRINGE 2 MG IV (01:13)
[2022-07-30] MEDS: cefTRIAXone 1,000 MG in SODIUM CHLORIDE 0.9% 100 ML 200 MG IV (01:51)
[2022-07-30 07:02] LABS: Add Manual Diff / Slide Review NO; Basophils Absolute Auto 0 /uL (0-100); Basophils Percent Auto 0.5 % (0-2); Eosinophils Absolute Auto 400 /uL (0-450); Hematocrit 36.6 % (36-46); Hemoglobin 12.8 g/dL (12.0-16.0); Lymphocytes Absolute Auto 2000 /uL (1100-4500); Lymphocytes Percent Auto 18.6 % (25-40); Mean Corpuscular HGB Conc 34.8 % (30-36); Mean Corpuscular Hemoglobin 32.3 PG (26-34); Monocytes Absolute Auto 800 /uL (0-900); Monocytes Percent Auto 7.4 % (3-14); Neutrophils Absolute Auto 7400 /uL (1500-7000); Neutrophils Percent Auto 69.5 % (50-75); Platelet Count 254 X10^3/uL (150-400); Red Blood Cell Count 3.94 X10^6/uL (4.0-5.2); Red Cell Distribution Width 12.8 % (11.6-14.8); White Blood Cell Count 10.6 X10^3/uL (4.5-11.0)
[2022-07-30 07:12] LABS: Alanine Aminotransferase 20 IU/L (<35); Albumin 3.9 g/dL (3.5-5.0); Albumin Globulin Ratio 1.6 (1.0-2.8); Alkaline Phosphatase 68 U/L (38-126); Aspartate Aminotransferase 22 IU/L (14-36); BUN Creatinine Ratio 17.6 (6-22); Bilirubin Total 0.4 mg/dL (0.2-1.3); Blood Urea Nitrogen 15 mg/dL (7-17); Calcium 8.5 mg/dL (8.4-10.2); Carbon Dioxide 25 mmol/L (22-32); Chloride 102 mmol/L (98-107); Estimated Glomerular Filt Rate > 60 mL/min (>60); Globulin 2.5 g/dL (1.7-4.1); Glucose 123 mg/dL (70-100); HEMOLYSIS < 15 (0-50); Magnesium 1.7 mg/dL (1.6-2.3); Potassium 3.9 mmol/L (3.4-5.1); Sodium 136 mmol/L (137-145); Total Protein 6.4 g/dL (6.3-8.2)
--- NOTE | 2022-07-30 07:27 | PM.PN.1 ---
Subjective Subjective Date Patient Seen: 07/30/22 Interval history: Pain is ok as long as she doesn't move much. Plan for L hip repair surgery today with ortho. Exam Vital Signs (past 8 hours): - 07/29/22 23:30 07/29/22 23:36 07/29/22 23:36 Temperature Pulse Rate 70 70 Respiratory Rate 16 Blood Pressure 134/72 Pulse Oximetry 95 96 Oxygen Flow Rate 07/30/22 00:00 07/30/22 00:00 07/30/22 00:31 Temperature 98.9 F Pulse Rate 69 74 Respiratory Rate 16 19 Blood Pressure 132/72 135/71 Pulse Oximetry 95 94 Oxygen Flow Rate 0 Oxygen Delivery Method Room Air Oxygen Flow Rate 0 Narrative Exam Narrative: Gen: Alert, oriented, well-developed 57 y.o. female, NAD HEENT: normocephalic, atraumatic, conjunctiva clear, sclera non-icteric, oral mucosa pink and moist Neck: supple, full ROM, no JVD, trachea is midline Resp: Lungs CTA, non-labored breathing CV: RRR, no murmur or rubs Abd: soft, non-tender, normoactive BTs Skin: no lesions or rashes, dry and intact Neuro: Alert and oriented X 4 w/no focal deficits. Speech clear and coherent. Extremities: left hip pain, is ambulatory, negative Arielle?s sign Psyche: normal mood and affect. Objective Labs 07/30/22 06:46 07/30/22 06:46 Labs: Laboratory Results - last 24 hr 07/29/22 07/29/22 07/29/22 22:07 22:07 22:47 WBC 7.8 RBC 4.39 Hgb 14.1 Hct 41.0 MCV 93.4 MCH 32.2 MCHC 34.5 RDW 13.2 Plt Count 284 Neut % (Auto) 59.4 Lymph % (Auto) 26.6 [place] % (Auto) 6.4 Eos % (Auto) 6.9 H Baso % (Auto) 0.7 Neut # (Auto) 4700 Lymph # (Auto) 2100 [place] # (Auto) 500 Eos # (Auto) 500 H Baso # (Auto) 100 Sodium 137 Potassium 3.7 Chloride 101 Carbon Dioxide 23 BUN 19 H Creatinine 1.16 H Estimated GFR 54 L BUN/Creatinine Ratio 16.4 Glucose 124 H Calcium 9.3 Magnesium Total Bilirubin 0.4 AST 24 ALT 22 Alkaline Phosphatase 68 Total Protein 7.5 Albumin 4.7 Globulin 2.8 Albumin/Globulin Ratio 1.7 Lipase 49 Urine Color Urine Appearance Urine pH Ur Specific [place] Urine Protein Urine Glucose (UA) Urine Ketones Urine Occult Blood Urine Nitrate Urine Bilirubin Urine Urobilinogen Ur Leukocyte Esterase Urine RBC Urine WBC Ur Squamous Epith Cells Urine Bacteria Ur Culture Indicated? SARS-CoV-2 (PCR) Negative 07/29/22 07/30/22 07/30/22 23:15 00:05 06:46 WBC 10.6 RBC 3.94 L Hgb 12.8 Hct 36.6 MCV 93.0 MCH 32.3 MCHC 34.8 RDW 12.8 Plt Count 254 Neut % (Auto) 69.5 Lymph % (Auto) 18.6 L [place] % (Auto) 7.4 Eos % (Auto) 4.0 Baso % (Auto) 0.5 Neut # (Auto) 7400 H Lymph # (Auto) 2000 [place] # (Auto) 800 Eos # (Auto) 400 Baso # (Auto) 0 Sodium Potassium Chloride Carbon Dioxide BUN Creatinine Estimated GFR BUN/Creatinine Ratio Glucose Calcium Magnesium Total Bilirubin AST ALT Alkaline Phosphatase Total Protein Albumin Globulin Albumin/Globulin Ratio Lipase Urine Color Yellow Urine Appearance Clear Urine pH 5.5 Ur Specific [place] 1.020 Urine Protein Negative Urine Glucose (UA) Negative Urine Ketones Negative Urine Occult Blood 1+ H Urine Nitrate Negative Urine Bilirubin Negative Urine Urobilinogen 0.2 Ur Leukocyte Esterase Negative Urine RBC 0-1/hpf 0-1/hpf Urine WBC 5-10/hpf H 0-1/hpf Ur Squamous Epith Cells 10-30 /hpf H Urine Bacteria Many (>30) H Many (>30) H Ur Culture Indicated? Specimen cultured Specimen cultured SARS-CoV-2 (PCR) 07/30/22 06:46 WBC RBC Hgb Hct MCV MCH MCHC RDW Plt Count Neut % (Auto) Lymph % (Auto) [place] % (Auto) Eos % (Auto) Baso % (Auto) Neut # (Auto) Lymph # (Auto) [place] # (Auto) Eos # (Auto) Baso # (Auto) Sodium 136 L Potassium 3.9 Chloride 102 Carbon Dioxide 25 BUN 15 Creatinine 0.85 Estimated GFR > 60 BUN/Creatinine Ratio 17.6 Glucose 123 H Calcium 8.5 Magnesium 1.7 Total Bilirubin 0.4 AST 22 ALT 20 Alkaline Phosphatase 68 Total Protein 6.4 Albumin 3.9 Globulin 2.5 Albumin/Globulin Ratio 1.6 Lipase Urine Color Urine Appearance Urine pH Ur Specific [place] Urine Protein Urine Glucose (UA) Urine Ketones Urine Occult Blood Urine Nitrate Urine Bilirubin Urine Urobilinogen Ur Leukocyte Esterase Urine RBC Urine WBC Ur Squamous Epith Cells Urine Bacteria Ur Culture Indicated? SARS-CoV-2 (PCR) [facility] Medical History Asthma Surgical History No history of previous surgery Family History Mother Diabetes mellitus Father No problems noted. Social History household members: spouse Smoking Status: Never smoker substance use type: does not use Assessment & Plan Assessment & Plan narrative: Left intertrochanteric fracture, acute and present on admission Dr. Martin notified and plans to take her into the OR 07/30 LR at 100 mL/hour Pain control with Tylenol, morphine, Dilaudid and IV diazepam UTI ruled out UA without pyuria stopped IV rocephin Asthma, chronic She will maintain on her maintenance inhaler Advair b.i.d. and albuterol nebulizers for wheezing or shortness of breath VTE Prophylaxis: SCD Pharmacological VTE prophylaxis contraindicated in the setting of anticipated surgery. Dispo: Likely home with HH PT in 1-2 days following surgery. COVID-19 COVID-19 status: Negative Result date/Date tested (Pos, Neg/Pending): 07/29/22 Time Spent With Patient Critical Care time: I spent a total of [] minutes of critical care time on this patient's care today; this time is exclusive of procedural time.
[2022-07-30 07:45] LABS: Prothrombin Time 11.5 SECONDS (10.1-12.7)
--- NOTE | 2022-07-30 10:27 | P.HP_ITS ---
History of Present Illness History of Present Illness Date Patient Seen: 07/30/22 Time Patient Seen: 10:00 Date of Onset of Symptoms: 07/30/22 Chief complaint: GLF/Hip Pain Narrative: This is a pleasant 57-year-old with hip arthritis who was wrestling with a friend's 2 children when they pulled her down and she landed on her left hip. She noted the acute onset of severe left hip pain. She has known osteoarthritis of both hips. She is actually scheduled for a right total hip arthroplasty in about a month. She describes a several year history of progressive worsening bilateral hip pain. There is known hip disease in her family and she has 2 younger sisters that have had hip replacement. Patient History Medical History Asthma Surgical History No history of previous surgery Family & Social History Family History Mother Diabetes mellitus Father No problems noted. Social History: household members spouse Prior Living Arrangements House Safety & Behavioral: Feels Safe in Current Yes Environment Been Physically Hurt or No Threatened By a Person Tobacco & Substance use: Smoking Status Never smoker alcohol intake frequency a few times a week Substance Use Type does not use Meds Home Medications and Allergies Home Medications Medication Instructions Recorded Confirmed Type ferrous sulfate 1 tab PO DAILY 07/29/22 07/30/22 History fluticasone propionate 115 2 puff inhalation Q4H PRN 07/29/22 07/29/22 History mcg-salmeterol 21 mcg/actuation Shortness Of Breath Or Wheezing HFA inhaler (Advair HFA) magnesium 100 mg BEDTIME leg cramps 07/29/22 07/29/22 History Allergies Allergy/AdvReac Type Severity Reaction Status Date / Time No Known Drug Allergies Allergy Verified 06/15/22 09:28 Review of Systems Review of Systems Narrative: She is not had any recent increased problems with her lungs, she has some problems with chronic asthma but is well controlled with an inhaler, she was not lightheaded or short of breath prior to her fall, she did not have any problems with dizziness or chest pain, she is not had any recent urinary symptoms. Exam Vital Signs (past 8 hours): - 07/30/22 07:00 07/30/22 08:10 Temperature 97 F L Pulse Rate 64 Respiratory Rate 18 Blood Pressure 119/60 Pulse Oximetry 99 99 Oxygen Delivery Method Room Air Oxygen Flow Rate 2.5 2 Oxygen Delivery Method Room Air Oxygen Flow Rate 2 Narrative Exam Narrative: HEENT is benign, lungs clear, cor regular rate and rhythm, abdomen soft benign, examination of the left lower extremity shows tenderness over the greater trochanter, she has pain with left hip range of motion, her skin is intact, she is able to fire toe flexors and extensors and has intact sensation in bilateral lower extremities, the right lower extremity shows significant pain with range of motion especially with high flexion calves are soft bilaterally Objective Labs 07/30/22 06:46 07/30/22 06:46 Labs: Laboratory Results - last 24 hr 07/29/22 07/29/22 07/29/22 22:07 22:07 22:47 WBC 7.8 RBC 4.39 Hgb 14.1 Hct 41.0 MCV 93.4 MCH 32.2 MCHC 34.5 RDW 13.2 Plt Count 284 Neut % (Auto) 59.4 Lymph % (Auto) 26.6 [place] % (Auto) 6.4 Eos % (Auto) 6.9 H Baso % (Auto) 0.7 Neut # (Auto) 4700 Lymph # (Auto) 2100 [place] # (Auto) 500 Eos # (Auto) 500 H Baso # (Auto) 100 PT INR Sodium 137 Potassium 3.7 Chloride 101 Carbon Dioxide 23 BUN 19 H Creatinine 1.16 H Estimated GFR 54 L BUN/Creatinine Ratio 16.4 Glucose 124 H Calcium 9.3 Magnesium Total Bilirubin 0.4 AST 24 ALT 22 Alkaline Phosphatase 68 Total Protein 7.5 Albumin 4.7 Globulin 2.8 Albumin/Globulin Ratio 1.7 Lipase 49 Urine Color Urine Appearance Urine pH Ur Specific [place] Urine Protein Urine Glucose (UA) Urine Ketones Urine Occult Blood Urine Nitrate Urine Bilirubin Urine Urobilinogen Ur Leukocyte Esterase Urine RBC Urine WBC Ur Squamous Epith Cells Urine Bacteria Ur Culture Indicated? SARS-CoV-2 (PCR) Negative 07/29/22 07/30/22 07/30/22 23:15 00:05 06:46 WBC 10.6 RBC 3.94 L Hgb 12.8 Hct 36.6 MCV 93.0 MCH 32.3 MCHC 34.8 RDW 12.8 Plt Count 254 Neut % (Auto) 69.5 Lymph % (Auto) 18.6 L [place] % (Auto) 7.4 Eos % (Auto) 4.0 Baso % (Auto) 0.5 Neut # (Auto) 7400 H Lymph # (Auto) 2000 [place] # (Auto) 800 Eos # (Auto) 400 Baso # (Auto) 0 PT INR Sodium Potassium Chloride Carbon Dioxide BUN Creatinine Estimated GFR BUN/Creatinine Ratio Glucose Calcium Magnesium Total Bilirubin AST ALT Alkaline Phosphatase Total Protein Albumin Globulin Albumin/Globulin Ratio Lipase Urine Color Yellow Urine Appearance Clear Urine pH 5.5 Ur Specific [place] 1.020 Urine Protein Negative Urine Glucose (UA) Negative Urine Ketones Negative Urine Occult Blood 1+ H Urine Nitrate Negative Urine Bilirubin Negative Urine Urobilinogen 0.2 Ur Leukocyte Esterase Negative Urine RBC 0-1/hpf 0-1/hpf Urine WBC 5-10/hpf H 0-1/hpf Ur Squamous Epith Cells 10-30 /hpf H Urine Bacteria Many (>30) H Many (>30) H Ur Culture Indicated? Specimen cultured Specimen cultured SARS-CoV-2 (PCR) 07/30/22 07/30/22 06:46 07:10 WBC RBC Hgb Hct MCV MCH MCHC RDW Plt Count Neut % (Auto) Lymph % (Auto) [place] % (Auto) Eos % (Auto) Baso % (Auto) Neut # (Auto) Lymph # (Auto) [place] # (Auto) Eos # (Auto) Baso # (Auto) PT 11.5 INR 1.0 Sodium 136 L Potassium 3.9 Chloride 102 Carbon Dioxide 25 BUN 15 Creatinine 0.85 Estimated GFR > 60 BUN/Creatinine Ratio 17.6 Glucose 123 H Calcium 8.5 Magnesium 1.7 Total Bilirubin 0.4 AST 22 ALT 20 Alkaline Phosphatase 68 Total Protein 6.4 Albumin 3.9 Globulin 2.5 Albumin/Globulin Ratio 1.6 Lipase Urine Color Urine Appearance Urine pH Ur Specific [place] Urine Protein Urine Glucose (UA) Urine Ketones Urine Occult Blood Urine Nitrate Urine Bilirubin Urine Urobilinogen Ur Leukocyte Esterase Urine RBC Urine WBC Ur Squamous Epith Cells Urine Bacteria Ur Culture Indicated? SARS-CoV-2 (PCR) x-rays show a left intertrochanteric hip fracture with left hip arthritis and severe right hip osteoarthritis previous films show marked progression of hip arthritis on the right and some progression of hip arthritis in the left over the last several years. Assessment & Plan Assessment and plan (1) Closed fracture of left hip: Status: Acute (2) UTI (urinary tract infection): Qualifiers: Urinary tract infection type: acute cystitis Hematuria presence: with hematuria Qualified Code(s): N30.01 - Acute cystitis with hematuria Status: Acute Plan I have recommended a left total hip arthroplasty. She had pre-existing arthritis of her left hip. Her x-rays show fairly rapid progression of right hip osteoarthritis over the last several years. Her left hip fracture pattern is an intertrochanteric fracture. We will have cerclage wires available for repair of the fracture in addition to left total hip arthroplasty. Options risks benefits and complications were discussed in detail. Total hip arthroplasty was felt to be a better option as I anticipate she will have progressive osteoarthritic change in the left hip over the next several years and would like to avoid additional revision surgery. Limits of the procedure complications including nonunion malunion, infection, recurrent instability with dislocation and medical problems and risk for infection as well as venous thrombus events was discussed in detail. She understands and would like to proceed with left hip arthroplasty. Time Spent With Patient Critical Care time: I spent a total of [] minutes of critical care time on this patient's care today; this time is exclusive of procedural time.
--- NOTE | 2022-07-30 10:42 | P.OP_ITS ---
Operative Date/Time/Diagnoses Date of procedure: 07/30/22 Time of procedure: 11:00 Pre-op diagnosis: Left hip osteoarthritis, left intertrochanteric hip fracture Post-op diagnosis: same Procedure & Clinicians Procedure: Left total hip arthroplasty, open reduction internal fixation left hip fracture intertrochanteric fracture Same procedure as scheduled: Yes Indications: The patient has had progressively worsening left hip pain with radiographic changes consistent with arthritis. She was scheduled for a right total hip arthroplasty but then she fell and sustained a left hip intertrochanteric fracture. The risks, benefits and alternatives to surgery were discussed with the patient prior to proceeding. Risks discussed included, but were not limited to, failure to relieve pain, leg length discrepancy, dislocation, stiffness, infection, nerve damage, deep venous thrombosis, pulmonary embolism, stroke, coma, heart attack, permanent paralysis and , as well as the potential need for eventual revision of the prosthetic. Surgeon: Sneha Martin Product Inspection Supervisor: Natalie Collazo Anesthesia Type: General and Spinal Operative Notes Findings: Adequate stability, trochanteric fracture, cerclage wire fixation of lesser trochanter and around the greater trochanter, full-thickness articular cartilage loss acetabulum and femoral head Closure Type: primary Specimen(s): none sent Prosthetic devices, grafts, tissues, transplants, or devices: [employer] R3 48 mm cup, neutral poly liner, size 14 standard offset Synergy, 32 x +0 Oxinium head,one 6.5 mm screw Estimated Blood Loss (mL): 250 Blood products transfused: none Procedure in detail: The patient was seen in the pre-operative area, where the patient identified the left hip as the operative site and this was marked with my initials. The patient received pre-operative antibiotics and was taken to the operating room and placed on the operative table in the right lateral decubitus position after satisfactory anesthesia. A time study clerk out was performed. The left leg was prepared from the ankle to the iliac crest with ChloroPrep in the usual fashion and draped through sterile drapes. The hip was approached through an approximately 20 cm incision centered over the greater trochanter and curving gently posteriorly as it went proximally. This was carried sharply to the fascia rosa, which was divided and retracted with a self retaining retractor. The trochanteric bursa was excised with care being taken to avoid the sciatic nerve, which was identified and protected throughout the case. The short external rotators were incised and the capsulomuscular flap was raised and tagged for later repair. The hip was partially brought up but it was opted to cut the femoral neck insitu because of the fracture and a femoral neck osteotomy performed approximately 15 mm above the lesser trochanter. The femoral head was removed. Multiple additional fragments of bone were removed down to the intertrochanteric line. The acetabulum was examined there was full- thickness articular cartilage loss in the acetabulum and also on the femoral head. There was a moderate joint effusion. There was a hemarthrosis. Retractors were placed around the femur. The canal was opened with a box cutting osteotome, followed by a T handled reamer and a lateralizing reamer. The proximal femur was carefully held and reduction maintained. The canal reame rs was then used, followed by sequential broaching until there was good stability of the broach in the femur. Retractors were placed to expose the acetabulum. The labrum and central soft tissues were removed. Reaming was performed initially going up in 2 mm increments, then 1 mm increments until good bite was obtained with an odd sized reamer. The cup 1 mm larger than the last reamer was then inserted using the appropriate anteversion guides. It was further stabilized with a single screw. A trial neutral liner was placed. The broach was placed in the canal. A trial head and neck were then placed and the hip relocated and checked for leg length and stability. An intraoperative film confirmed the component position and no evidence of fracture. The patient was stable in the position of sleep, of squatting, and could be put through a range of motion with 45 degrees internal rotation without dislocation. At 90 degrees flexion, internal rotation to 70-80 degrees was possible before dislo cation. There was some mild rotational instability of the femoral broach. I went up a size and I also placed a cerclage wire around the trochanteric fracture line. This was meticulously tightened to about 50 lb of pressure. A repeat x-ray reconfirmed position of the components and the cerclage wire. The stability was felt to be satisfactory and the appropriate components were opened, and the trials were removed. The acetabular liner was impacted into position. The final stem was then impacted into the prepared femoral canal. The cerclage wire was checked and retightened. A brief Betadine soak was performed while trialing with head options. The hip was meticulously irrigated with normal saline. Finally the femoral head was impacted onto the stem. The acetabulum was cleared of all ma terial and the hip relocated one final time. The capsulomuscular flap was then repaired to the greater trochanter carefully using the tag sutures. The short external rotators were repaired with a no nabsorbable suture. The fascia rosa was closed with Vicryl. The subcutaneous layer was closed with barbed sutures and surgical glue. An Aquacel Ag dressing was applied and the patient was taken to recovery having tolerated the procedure well. Complications: none Post-operative Condition: stable Disposition: Acute Care Plan for aftercare: The patient will be maintained on a standard total hip replacement protocol with weight bearing as tolerated and posterior hip precautions. The patient will receive Aspirin and sequential compression devices for DVT prophylaxis. The patient will be discharged home when safe for the home environment.
--- NOTE | 2022-07-30 10:55 | PC.NURSE ---
Day shift: Dr Martin has seen Pt this AM and the consent is signed and in chart. Pt comfortable in bed and has not needed any pain meds. NPO since midnight. IV fluid stopped and tubing remains connected as it can be used in surgery per MD Jorge (anesthesia).
--- NOTE | 2022-07-30 11:17 | DI.RAD.S_ITS ---
PROCEDURE: XR HIP W PEL IF DONE LT 2V INDICATIONS: left hip fracture TECHNIQUE: AP pelvis and lateral view of the left hip acquired. COMPARISON: [facility], [place], XR HIP W PEL IF DONE LT 2V, 07/29/2022, 22:14. FINDINGS: Bones: Patient is status post left hip arthroplasty, with hardware components in expected positions. The hip joint appears congruent. The visualized bony structures appear intact. Soft tissues: Overlying postoperative changes are noted. No suspicious soft tissue densities. IMPRESSION: Postsurgical changes from left total hip arthroplasty with anatomic left hip alignment. Dictated by: Corey Velasquez M.D. on 07/30/2022 at 13:42 Approved by: Corey Velasquez M.D. on 07/30/2022 at 13:43
[2022-07-30] MEDS: CEFAZOLIN 2 GM/100 ML PREMIX 100 ML IV ×2 (11:20→18:07)
--- NOTE | 2022-07-30 11:38 | PC.NURSE ---
Day shift: Pt off unit for surgery at approx 1115.
[2022-07-30] MEDS: TRANEXAMIC ACID 1,000 MG VIAL 2000 MG INJ ×2 (11:43→13:39)
[2022-07-30] MEDS: VANCOMYCIN 1,000 MG/200 ML PIGGYBACK 200 MG IV (11:52)
[2022-07-30] MEDS: BUPIVACAINE LIPOSOME 266 MG/20 ML VIAL INJ (11:53)
[2022-07-30] MEDS: BUPIVACAINE 0.5% W/ EPI (PF) 30 ML VIAL INJ (11:55)
--- NOTE | 2022-07-30 12:05 | SUR.OPER ---
Lateral on padded OR bed. Gel axillary roll. Arms secured on padded armboard with pillow supporting top arm. Padded hip positioner braces x4 - anterior and posterior chest and pelvis. Additional gel pad used anterior pelvis. Gel pad under bottom leg from knee to foot and secured with tape over sheet.
--- NOTE | 2022-07-30 13:14 | PC.NURSE ---
Day shift: Pt not in room at this time.
--- NOTE | 2022-07-30 14:26 | CM.DANOTE ---
Addendum entered by Rianna Sandoval R.N. 07/30/22 14:41: PCP: Shahnaz Macias per pt report Insurance: [employer]; Medicaid Original Note: DCP: Case received, EMR reviewed and met with patient. Pt's daughter and son were present in her room. Introduced self and role. Was able to obtain information regarding patient's baseline activity status at home. DCP assessment completed with information currently available. Pt arrived to the ED via ambulance, under the care of the orthopedic team with c/o pain to her Left hip after she had a fall out of a chair onto a hardwood floor when playing with her grandchildren. She is noted to have left hip osteoarthritis, left intertrochanteric hip fracture. She is scheduled to undergo a Left total hip arthroplasty with open reduction internal fixation today. Pt states that she lives in [place] with her 2 adult sons. She has a son as a contact who is currently in [place] and so she has added her Daughter to her main contact. Pt reports that she drives and does not use dme. She reports that she is set up to have a Right total hip replacement at [place] [facility] on September 09. Plan: Home with her 2 sons who will provide support. Outpatient PT, when medically stable. Will follow closely after sx for any change in plan. Rianna Sandoval RN Case Manager Discharge Planning/Care Management CM Discharge Assessment Start: 07/30/22 14:15 Freq: Status: Active Protocol: Document 07/30/22 14:16 ROMMEL (Rec: 07/30/22 14:26 ROMMEL [id number]) Discharge Planning Assessment Assigned Tactical Deception Plans Officer Rianna Sandoval RN Case Manager Advance Directives? No History Provided By Patient,Significant Other, Medical Record Has Patient been admitted in last 30 No days? Prior Living Arrangements House Household Members children Comment Pt has 2 adult sons who live with her Type of transporation used prior to Drives own vehicle admit Independent with ADL's Yes Is patient alert and oriented? Yes Caregiver for Another No Comment Will follow closely for s/p surgery home needs Barriers to Discharge No Discharge Plan Home Transportation Arrangement Family will transport Referrals Initiated None needed Additional Comment Home with sons and outpatient Physical Therapy Whiteboard Updated in Patient Room with Yes name and ext. # of Tactical Deception Plans Officer Review Status In Process Next Review Type Continued Stay Review
[2022-07-30] MEDS: fentaNYL 100 MCG/2 ML INJ 50 MCG IV (14:29)
[2022-07-30] MEDS: ACETAMINOPHEN 325 MG TABLET 975 MG PO (14:52)
[2022-07-30] MEDS: OXYCODONE IR 5 MG TABLET PO (15:05)
[2022-07-30] MEDS: LACTATED RINGERS 1,000 ML 125 ML IV (15:32)
[2022-07-30] MEDS: OXYCODONE IR 10 MG TABLET PO (17:05)
[2022-07-30] MEDS: IBUPROFEN 400 MG TABLET PO (17:05)
[2022-07-30] MEDS: ACETAMINOPHEN 325 MG TABLET 650 MG PO (17:05)
[2022-07-30] MEDS: polyethylene glycoL 3350 17 GM POWD.PACK PO (17:10)
[2022-07-31] MEDS: CEFAZOLIN 2 GM/100 ML PREMIX 100 ML IV (03:24)
[2022-07-31] MEDS: OXYCODONE IR 10 MG TABLET PO ×4 (03:28→15:03)
[2022-07-31 03:41] VITALS: BP 110/53; PULSE 68; RESP 18; TEMP 36.8; O2SAT 98
[2022-07-31 07:30] VITALS: BP 117/51; PULSE 71; RESP 18; TEMP 36.9; O2SAT 99
[2022-07-31 07:57] LABS: Add Manual Diff / Slide Review NO; Basophils Absolute Auto 0 /uL (0-100); Basophils Percent Auto 0.3 % (0-2); Eosinophils Absolute Auto 0 /uL (0-450); Eosinophils Percent Auto 0.1 % (2-4); Hematocrit 29.5 % (36-46); Hemoglobin 10.3 g/dL (12.0-16.0); Lymphocytes Absolute Auto 1300 /uL (1100-4500); Lymphocytes Percent Auto 9.3 % (25-40); Mean Corpuscular HGB Conc 34.8 % (30-36); Mean Corpuscular Hemoglobin 32.4 PG (26-34); Mean Corpuscular Volume 93.2 fL (80-100); Monocytes Absolute Auto 1100 /uL (0-900); Monocytes Percent Auto 7.8 % (3-14); Neutrophils Absolute Auto 11300 /uL (1500-7000); Neutrophils Percent Auto 82.5 % (50-75); Platelet Count 235 X10^3/uL (150-400); Red Blood Cell Count 3.17 X10^6/uL (4.0-5.2); Red Cell Distribution Width 12.8 % (11.6-14.8); White Blood Cell Count 13.6 X10^3/uL (4.5-11.0)
[2022-07-31 08:15] LABS: Alanine Aminotransferase 24 IU/L (<35); Albumin 3.6 g/dL (3.5-5.0); Albumin Globulin Ratio 1.5 (1.0-2.8); Alkaline Phosphatase 51 U/L (38-126); Aspartate Aminotransferase 44 IU/L (14-36); BUN Creatinine Ratio 14.1 (6-22); Bilirubin Total 0.3 mg/dL (0.2-1.3); Blood Urea Nitrogen 10 mg/dL (7-17); Calcium 8.5 mg/dL (8.4-10.2); Carbon Dioxide 26 mmol/L (22-32); Chloride 102 mmol/L (98-107); Estimated Glomerular Filt Rate > 60 mL/min (>60); Globulin 2.4 g/dL (1.7-4.1); Glucose 102 mg/dL (70-100); HEMOLYSIS < 15 (0-50); Magnesium 1.7 mg/dL (1.6-2.3); Potassium 3.9 mmol/L (3.4-5.1); Sodium 137 mmol/L (137-145)
[2022-07-31] MEDS: ASPIRIN EC 81 MG TABLET PO ×2 (08:52→21:14)
[2022-07-31] MEDS: IBUPROFEN 400 MG TABLET PO ×3 (08:52→23:56)
[2022-07-31] MEDS: DOCUSATE 100 MG CAPSULE PO ×2 (08:52→21:14)
[2022-07-31] MEDS: FERROUS SULFATE 325 MG TABLET PO (08:52)
[2022-07-31] MEDS: ACETAMINOPHEN 325 MG TABLET 650 MG PO ×3 (08:53→23:56)
[2022-07-31] MEDS: polyethylene glycoL 3350 17 GM POWD.PACK PO (08:58)
--- NOTE | 2022-07-31 09:10 | PM.PNPO.1 ---
Subjective Subjective Date Patient Seen: 07/31/22 Time Patient Seen: 09:10 Interval history: Pt sitting up in bed, appears to be comfortable, does say she is sore. Has not worked w/ PT yet. She does have help at home. Exam Vital Signs (past 8 hours): - 07/31/22 03:41 07/31/22 07:30 Temperature 98.2 F 98.4 F Pulse Rate 68 71 Respiratory Rate 18 18 Blood Pressure 110/53 L 117/51 L Pulse Oximetry 98 99 Oxygen Flow Rate 0 0 Oxygen Delivery Method Room Air Oxygen Flow Rate 0 Narrative Exam Narrative: 3/5 hip flexors, quadriceps, hamstrings; 5/5 DF, PF, EHL on left. Sensation to light touch intact throughout LLE. Calves soft, compressible, nontender and without palpable cords or masses. Aquacel dressing CDI. Objective Labs 07/31/22 07:32 07/31/22 07:32 Labs: Laboratory Results - last 24 hr 07/31/22 07/31/22 07:32 07:32 WBC 13.6 H RBC 3.17 L Hgb 10.3 L Hct 29.5 L MCV 93.2 MCH 32.4 MCHC 34.8 RDW 12.8 Plt Count 235 Neut % (Auto) 82.5 H Lymph % (Auto) 9.3 L [place] % (Auto) 7.8 Eos % (Auto) 0.1 L Baso % (Auto) 0.3 Neut # (Auto) 20651 H Lymph # (Auto) 1300 [place] # (Auto) 1100 H Eos # (Auto) 0 Baso # (Auto) 0 Sodium 137 Potassium 3.9 Chloride 102 Carbon Dioxide 26 BUN 10 Creatinine 0.71 Estimated GFR > 60 BUN/Creatinine Ratio 14.1 Glucose 102 H Calcium 8.5 Magnesium 1.7 Total Bilirubin 0.3 AST 44 H ALT 24 Alkaline Phosphatase 51 Total Protein 6.0 L Albumin 3.6 Globulin 2.4 Albumin/Globulin Ratio 1.5 PFSH Medical History Asthma Surgical History No history of previous surgery Family History Mother Diabetes mellitus Father No problems noted. Social History household members: children Smoking Status: Never smoker substance use type: does not use Assessment & Plan Post-op Assessment and plan (1) S/P total hip arthroplasty: Assessment and Plan narrative: PT, WBAT to LLE. Posterior hip precautions. ASA 81 mg BID x 6 weeks for VTE prophylaxis. F/u in orthopedic clinic in 10-14 days for staple removal, wound check, repeat xrays. Disposition and pain meds per hospitalist team. Postoperative Procedures: Procedures Operation Date: 07/30/22 11:00 Actual Procedure Side Surgeon p Total Hip Arthroplasty with cerglage cables Left Sneha Martin MD Postoperative day: 1
[2022-07-31 12:00] VITALS: BP 94/48; PULSE 76; RESP 18; TEMP 36.9; O2SAT 98
--- NOTE | 2022-07-31 12:23 | CM.DPC ---
DCP/continued: Reviewed chart. Patient is POD#1 for hip repair. Met with patient and family at bedside this AM. Patient complains of a lot of pain. Nrsg made aware that we do not have PT today. Therefore, if they can work with her in bed/room a bit that would be beneficial. Spoke PT/manager operations and procurement Kimmie via telephone, she requested that I put in priority order for therapy in AM. Once cleared by therapy patient will d/c home. Patient plans to do outpatient therapy and has family support in the residence. They will be obtaining FWW. P: Anticipate home tomorrow after seen by therapy and provider deems medically cleared. DAVID
--- NOTE | 2022-07-31 15:22 | PM.PN.1 ---
Subjective Subjective Date Patient Seen: 07/31/22 Interval history: Margarita Ramirez is a 57 y.o. female with asthma and due for a right hip replacement was in her usual state of health when she was sitting, then arose from a chair and fell onto a hardwood floor on her left side, sustaining a left sided intertrochanteric hip fracture. She denies blacking out, and she denies nausea or vomiting and pain control was adequate currently.? She states that she is scheduled for replacement of her right hip and has been compensating with her left leg. Patient had open reduction internal fixation of left intertrochanteric fracture on 07/30/2022. Exam Vital Signs (past 8 hours): - 07/31/22 07:30 07/31/22 12:00 Temperature 98.4 F 98.4 F Pulse Rate 71 76 Respiratory Rate 18 18 Blood Pressure 117/51 L 94/48 L Pulse Oximetry 99 98 Oxygen Flow Rate 0 0 Oxygen Delivery Method Room Air Oxygen Flow Rate 0 Narrative Exam Narrative: Gen: Alert, oriented, well-developed 57 y.o. ? female, NAD HEENT: normocephalic, atraumatic, conjunctiva clear, sclera non-icteric, oral mucosa pink and moist Neck: supple, full ROM, no JVD, trachea is midline Resp: Lungs CTA, non-labored breathing CV: RRR, no murmur or rubs Abd: soft, non-tender, normoactive BTs Skin: no lesions or rashes, dry and intact Neuro: Alert and oriented X 4 w/no focal deficits. Speech clear and coherent. Extremities: left hip pain, pain is managed appropriately per patient, post op Psyche: normal mood and affect. Objective Labs 07/31/22 07:32 07/31/22 07:32 Labs: Laboratory Results - last 24 hr 07/31/22 07/31/22 07:32 07:32 WBC 13.6 H RBC 3.17 L Hgb 10.3 L Hct 29.5 L MCV 93.2 MCH 32.4 MCHC 34.8 RDW 12.8 Plt Count 235 Neut % (Auto) 82.5 H Lymph % (Auto) 9.3 L [place] % (Auto) 7.8 Eos % (Auto) 0.1 L Baso % (Auto) 0.3 Neut # (Auto) 04585 H Lymph # (Auto) 1300 [place] # (Auto) 1100 H Eos # (Auto) 0 Baso # (Auto) 0 Sodium 137 Potassium 3.9 Chloride 102 Carbon Dioxide 26 BUN 10 Creatinine 0.71 Estimated GFR > 60 BUN/Creatinine Ratio 14.1 Glucose 102 H Calcium 8.5 Magnesium 1.7 Total Bilirubin 0.3 AST 44 H ALT 24 Alkaline Phosphatase 51 Total Protein 6.0 L Albumin 3.6 Globulin 2.4 Albumin/Globulin Ratio 1.5 PFSH Medical History Asthma Surgical History No history of previous surgery Family History Mother Diabetes mellitus Father No problems noted. Social History household members: children Smoking Status: Never smoker substance use type: does not use Assessment & Plan Assessment & Plan narrative: 1. Left intertrochanteric fracture, acute and present on admission Dr. Martin notified inked completed open reduction internal fixation on July 30, 2022 Pain control with Tylenol, morphine, Dilaudid and IV diazepam 2. Urinary tract infection, acute, and present on admission She is initiated on IV ceftriaxone 1 g IV daily on admission prior to surgery. Since surgery antibiotics have been discontinued. However the urine culture is positive with identification and sensitivities pending. Continue ceftriaxone 1 g IV every 24 hours until full culture results are known. 3. Asthma, chronic She will maintain on her maintenance inhaler Advair b.i.d. and albuterol nebulizers for wheezing or shortness of breath 4. DVT prophylaxis : mobilization and SCD. Follow labs and patient clinically. Dispo: likely discharge to home Code status: Full code VTE Deep Vein Thrombosis/Pulmonary Embolism Present on Admission: No MIPS - Admit I confirm the patient?s Advance Care Plan is present, Code status is documented, Surrogate decision maker is in patient?s record: Yes MIPS - DC The patient has current or prior documentation of left ventricular ejection fraction (LVEF) less than 40%, or moderate or severely depressed left ventricular systolic function.: No COVID-19 COVID-19 status: Negative Result date/Date tested (Pos, Neg/Pending): 07/29/22 Time Spent With Patient Critical Care time: I spent a total of [] minutes of critical care time on this patient's care today; this time is exclusive of procedural time.
--- NOTE | 2022-07-31 15:25 | PC.NURSE ---
Day shift: Pt OOB to BS and did well with pain present but was able to do it and had a BM. Wanted to get back into bed and is resting comfortably. Pain has been well controlled per AUG. No IV pain meds given. No nausea. Dressing remains CDI. Uses call light proper. No PT/OT today as no staff here today from that department. Likely d/c navarrete tomorrow. Pt was asked by this curriculum writer if she wanted it removed and she did not. Will continue with plan of care. Call light in reach and bed alarm is on.
[2022-07-31] MEDS: cefTRIAXone 1,000 MG in SODIUM CHLORIDE 0.9% 100 ML 200 MG IV (16:15)
[2022-07-31] MEDS: SODIUM CHLORIDE 0.9% FLUSH 10 ML IV (21:14)
[2022-07-31 22:31] VITALS: BP 128/62; PULSE 86; RESP 18; TEMP 37.2; O2SAT 95
[2022-07-31] MEDS: OXYCODONE IR 5 MG TABLET PO (23:56)
[2022-08-01] MEDS: IBUPROFEN 400 MG TABLET PO ×2 (05:53→12:21)
[2022-08-01] MEDS: ACETAMINOPHEN 325 MG TABLET 650 MG PO ×2 (05:53→12:21)
[2022-08-01 06:00] VITALS: BP 99/63; PULSE 70; RESP 18; TEMP 36.9; O2SAT 98
[2022-08-01 07:40] LABS: Add Manual Diff / Slide Review NO; Basophils Absolute Auto 0 /uL (0-100); Basophils Percent Auto 0.4 % (0-2); Eosinophils Absolute Auto 200 /uL (0-450); Eosinophils Percent Auto 2.8 % (2-4); Hematocrit 25.8 % (36-46); Lymphocytes Absolute Auto 1500 /uL (1100-4500); Lymphocytes Percent Auto 16.8 % (25-40); Mean Corpuscular HGB Conc 34.9 % (30-36); Mean Corpuscular Hemoglobin 32.5 PG (26-34); Mean Corpuscular Volume 93.2 fL (80-100); Monocytes Absolute Auto 700 /uL (0-900); Monocytes Percent Auto 7.7 % (3-14); Neutrophils Absolute Auto 6400 /uL (1500-7000); Neutrophils Percent Auto 72.3 % (50-75); Platelet Count 211 X10^3/uL (150-400); Red Blood Cell Count 2.77 X10^6/uL (4.0-5.2); Red Cell Distribution Width 13.4 % (11.6-14.8); White Blood Cell Count 8.9 X10^3/uL (4.5-11.0)
[2022-08-01 07:48] LABS: HEMOLYSIS < 15 (0-50); Potassium 3.7 mmol/L (3.4-5.1)
[2022-08-01 07:49] LABS: BUN Creatinine Ratio 12.9 (6-22); Blood Urea Nitrogen 11 mg/dL (7-17); Calcium 8.2 mg/dL (8.4-10.2); Carbon Dioxide 28 mmol/L (22-32); Chloride 103 mmol/L (98-107); Estimated Glomerular Filt Rate > 60 mL/min (>60); Glucose 99 mg/dL (70-100); Sodium 137 mmol/L (137-145)
--- NOTE | 2022-08-01 07:50 | PM.DS.1 ---
History of Present Illness History of Present Illness Date Patient Seen: 08/01/22 Time Patient Seen: 07:51 Chief complaint: GLF/Hip Pain Narrative: Patient is awake lying comfortably in bed this morning. She is been icing her hip. She states pain has been well controlled with medication. Has been up to the bedside commode with moderate increased pain. Denies nausea, vomiting, fever, chills. States she has help at home would like to go home today after physical therapy. Discharge Providers Provider Date of admission: 07/30/22 00:03 Discharge Date: 08/01/22 Consults: 07/29/22 23:53 Consult to Physician Routine Comment: Consulting Provider: Sneha Martin Reason for consultation: left hip intertrochanteric fracture Has provider been notified: Yes 07/30/22 11:16 Consult to Anesthesiology Routine Comment: Consulting Provider: Anesthesiologist Reason for consultation: Regional block for post operative pain control 07/30/22 15:11 Consult to Discharge Planning Routine Comment: Consult to Physical Therapy Evaluate & Treat Comment: Physician Instructions: post op GALILEA protocol 07/31/22 12:30 Consult to Physical Therapy Evaluate & Treat Comment: Please see in AM on 08-01-22 Physician Instructions: Evaluate and Treat Discharge provider: Karma Quiroz PA-C Summary Hospital Course Discharge Diagnosis: Status post left total hip arthroplasty Hospital Course: Operative Date/Time/Diagnoses Date of procedure: 07/30/22 Time of procedure: 11:00 Pre-op diagnosis: Left hip osteoarthritis, left intertrochanteric hip fracture Post-op diagnosis: same Procedure & Clinicians Procedure: Left total hip arthroplasty, open reduction internal fixation left hip fracture intertrochanteric fracture Same procedure as scheduled: Yes Indications: The patient has had progressively worsening left hip pain with radiographic changes consistent with arthritis.? She was scheduled for a right total hip arthroplasty but then she fell and sustained a left hip intertrochanteric fracture.? The risks, benefits and alternatives to surgery were discussed with the patient prior to proceeding. Risks discussed included, but were not limited to, failure to relieve pain, leg length discrepancy, dislocation, stiffness, infection, nerve damage, deep venous thrombosis, pulmonary embolism, stroke, coma, heart attack, permanent paralysis and , as well as the potential need for eventual revision of the prosthetic. Surgeon: Sneha Martin Bridge Painter: Natalie Collazo Anesthesia Type: General and Spinal Operative Notes Findings: Adequate stability, trochanteric fracture, cerclage wire fixation of lesser trochanter and around the greater trochanter, full-thickness articular cartilage loss acetabulum and femoral head Closure Type: primary Specimen(s): none sent Prosthetic devices, grafts, tissues, transplants, or devices: [employer] R3 48 mm cup, neutral poly liner, size 14 standard offset Synergy, 32 x +0 Oxinium head,one 6.5 mm screw Estimated Blood Loss (mL): 250 Blood products transfused: none Status at Discharge Cognitive/behavioral status at discharge: oriented Functional status at discharge: uses cane/walker Overall status at discharge: patient is progressing back to baseline Exam Vital Signs (past 8 hours): - 08/01/22 06:00 Temperature 98.5 F Pulse Rate 70 Respiratory Rate 18 Blood Pressure 99/63 Pulse Oximetry 98 Oxygen Flow Rate 0 Oxygen Delivery Method Room Air Oxygen Flow Rate 0 Narrative Exam Narrative: Awake, alert, and oriented. Intraoperative left hip dressing clean, dry, and intact. Strength and sensation intact bilateral lower extremities. Bilateral calves soft, compressible, nontender with no palpable cords or masses. Objective Labs 08/01/22 07:25 08/01/22 07:25 Labs: Laboratory Results - last 24 hr 07/31/22 07/31/22 08/01/22 07:32 07:32 07:25 WBC 13.6 H 8.9 RBC 3.17 L 2.77 L Hgb 10.3 L 9.0 L Hct 29.5 L 25.8 L MCV 93.2 93.2 MCH 32.4 32.5 MCHC 34.8 34.9 RDW 12.8 13.4 Plt Count 235 211 Neut % (Auto) 82.5 H 72.3 Lymph % (Auto) 9.3 L 16.8 L [place] % (Auto) 7.8 7.7 Eos % (Auto) 0.1 L 2.8 Baso % (Auto) 0.3 0.4 Neut # (Auto) 34832 H 6400 Lymph # (Auto) 1300 1500 [place] # (Auto) 1100 H 700 Eos # (Auto) 0 200 Baso # (Auto) 0 0 Sodium 137 Potassium 3.9 Chloride 102 Carbon Dioxide 26 BUN 10 Creatinine 0.71 Estimated GFR > 60 BUN/Creatinine Ratio 14.1 Glucose 102 H Calcium 8.5 Magnesium 1.7 Total Bilirubin 0.3 AST 44 H ALT 24 Alkaline Phosphatase 51 Total Protein 6.0 L Albumin 3.6 Globulin 2.4 Albumin/Globulin Ratio 1.5 08/01/22 07:25 WBC RBC Hgb Hct MCV MCH MCHC RDW Plt Count Neut % (Auto) Lymph % (Auto) [place] % (Auto) Eos % (Auto) Baso % (Auto) Neut # (Auto) Lymph # (Auto) [place] # (Auto) Eos # (Auto) Baso # (Auto) Sodium 137 Potassium 3.7 Chloride 103 Carbon Dioxide 28 BUN 11 Creatinine 0.85 Estimated GFR > 60 BUN/Creatinine Ratio 12.9 Glucose 99 Calcium 8.2 L Magnesium Total Bilirubin AST ALT Alkaline Phosphatase Total Protein Albumin Globulin Albumin/Globulin Ratio [facility] Medical History Asthma Surgical History No history of previous surgery Family History Mother Diabetes mellitus Father No problems noted. Social History household members: children Smoking Status: Never smoker substance use type: does not use Discharge Assessment & Plan Assessment and Plan Assessment: Patient progressing as expected after left total hip arthroplasty. Plan of Treatment: Plan for discharge to home after working with physical therapy today. Patient will continue physical therapy as outpatient. She will continue 81 mg aspirin b.i.d. for 6 weeks as well as oxycodone, ibuprofen, and Tylenol for pain as needed. Will see orthopedics for 2 week postop follow-up. Discharge Plan Discharge Plan Patient Disposition: Home Provider Discharge Comment: Discharge when safe and cleared by Physical therapy Discharge orders & Medications Prescriptions: New acetaminophen 325 mg Tablet 650 mg PO Q6HR Qty: 40 0RF aspirin 81 mg Tablet,Delayed Release (Dr/Ec) 81 mg PO BID Qty: 80 0RF ibuprofen 400 mg Tablet 400 mg PO Q6HR Qty: 40 0RF oxycodone 5 mg Tablet 5 mg PO Q4-6H PRN (Reason: Pain, Moderate (4-6)) Qty: 42 0RF Continued Advair HFA 115-21 mcg/actuation HFA aerosol inhaler 2 puff INHALATION Q4H PRN (Reason: Shortness Of Breath Or Wheezing) Label Comments: inhale 2 puffs twice daily ferrous sulfate bottle 1 tab PO DAILY magnesium 100 mg 100 mg BEDTIME Follow up/Referrals: Miscellaneous,DoctorMD [Non-Staff] - Sneha Martin MD [Physician] - 2 Weeks (Call for f/u appt w/ Dr Martin or PA between Aug 09 and August 13. We will remove ulices and get an xray at that time.) Diet/Activity/Treatments Activity: WBAT to left leg. Posterior hip precautions. Cold/Heat Therapy: Ice to hip as needed for pain. Skin/Wound/Dressing Care Report to your healthcare provider any signs of infection, such as:: chills, fever, night sweats, unusual drainage and unusual redness Dressing: May shower. Leave Aquacel dressing in place until follow up in office. No bathing or otherwise soaking incision. Call the office if the dressing becomes saturated inside. Visit Report/Discharge Packet Instructions: DI for Hip Replacement Stand Alone Forms: Patient Portal/API, Stroke Signs & Symptoms, Surgery Discharge
--- NOTE | 2022-08-01 09:10 | P.PN_ITS ---
Subjective Subjective Date Patient Seen: 08/01/22 Interval history: Margarita Ramirez is a 57 y.o. female with asthma and due for a right hip replacement was in her usual state of health when she was sitting, then arose from a chair and fell onto a hardwood floor on her left side, sustaining a left sided intertrochanteric hip fracture. She denies blacking out, and she denies nausea or vomiting and pain control was adequate currently.? She states that she is scheduled for replacement of her right hip and has been compensating with her left leg.? Patient had open reduction internal fixation of left intertrochanteric fracture on 07/30/2022. Ready to go home and Ortho has discharged the patient. Only worry is about getting a walker for home. Encouraged her to ask nursing how to do. Exam Vital Signs (past 8 hours): - 08/01/22 06:00 Temperature 98.5 F Pulse Rate 70 Respiratory Rate 18 Blood Pressure 99/63 Pulse Oximetry 98 Oxygen Flow Rate 0 Oxygen Delivery Method Room Air Oxygen Flow Rate 0 Narrative Exam Narrative: Gen: Alert, oriented, well-developed female, NAD HEENT: normocephalic, atraumatic, conjunctiva clear, sclera non-icteric, oral mucosa pink and moist Neck: supple, full ROM, no JVD, trachea is midline Resp: Lungs CTA, non-labored breathing CV: RRR, no murmur or rubs Abd: soft, non-tender, normoactive BTs Skin: no lesions or rashes, dry and intact Neuro: Alert and oriented X 4 w/no focal deficits. Speech clear and coherent. Extremities: left hip pain, pain is managed appropriately per patient, post op Psyche: normal mood and affect. Objective Labs 08/01/22 07:25 08/01/22 07:25 Labs: Laboratory Results - last 24 hr 08/01/22 08/01/22 07:25 07:25 WBC 8.9 RBC 2.77 L Hgb 9.0 L Hct 25.8 L MCV 93.2 MCH 32.5 MCHC 34.9 RDW 13.4 Plt Count 211 Neut % (Auto) 72.3 Lymph % (Auto) 16.8 L [place] % (Auto) 7.7 Eos % (Auto) 2.8 Baso % (Auto) 0.4 Neut # (Auto) 6400 Lymph # (Auto) 1500 [place] # (Auto) 700 Eos # (Auto) 200 Baso # (Auto) 0 Sodium 137 Potassium 3.7 Chloride 103 Carbon Dioxide 28 BUN 11 Creatinine 0.85 Estimated GFR > 60 BUN/Creatinine Ratio 12.9 Glucose 99 Calcium 8.2 L PFSH Medical History Asthma Surgical History No history of previous surgery Family History Mother Diabetes mellitus Father No problems noted. Social History household members: children Smoking Status: Never smoker substance use type: does not use Assessment & Plan Assessment & Plan narrative: 1. Left intertrochanteric fracture, acute and present on admission * Dr. Martin completed open reduction internal fixation on July 30, 2022 * Pain control with Tylenol, morphine, Dilaudid and IV diazepam * Ready for discharge per Ortho 2. Urinary tract infection, acute, and present on admission * She is initiated on IV ceftriaxone 1 g IV daily on admission prior to surgery.? Since surgery antibiotics have been discontinued.? E. Coli sensitive to Ceftriaxone. Received sufficient doase in hospital for treatment, no need to continue antibiotics on discharge. 3. Asthma, chronic * She will maintain on her maintenance inhaler Advair b.i.d. and albuterol nebulizers for wheezing or shortness of breath 4. DVT prophylaxis : mobilization? and SCD. Patient discharged today per Ortho. Dispo: discharge to home Code status: Full code VTE Deep Vein Thrombosis/Pulmonary Embolism Present on Admission: No MIPS - Admit I confirm the patient?s Advance Care Plan is present, Code status is documented, Surrogate decision maker is in patient?s record: Yes MIPS - DC The patient has current or prior documentation of left ventricular ejection fraction (LVEF) less than 40%, or moderate or severely depressed left ventricular systolic function.: No COVID-19 COVID-19 status: Negative Result date/Date tested (Pos, Neg/Pending): 07/29/22 Time Spent With Patient Critical Care time: I spent a total of [] minutes of critical care time on this patient's care today; this time is exclusive of procedural time.
[2022-08-01] MEDS: ASPIRIN EC 81 MG TABLET PO (09:16)
[2022-08-01] MEDS: SODIUM CHLORIDE 0.9% FLUSH 10 ML IV (09:17)
[2022-08-01] MEDS: FERROUS SULFATE 325 MG TABLET PO (09:17)
[2022-08-01] MEDS: OXYCODONE IR 5 MG TABLET PO (09:19)
--- NOTE | 2022-08-01 09:45 | PT.IIE ---
Current Diagnoses Acute cystitis with hematuria (07/30/22) Fracture of unspecified part of neck of left femur, initial encounter for closed fracture (07/30/22) Procedure and treatment not carried out because of other contraindication (07/30/22) Presence of unspecified artificial hip joint (07/30/22) Surgery Performed Operation Date: 07/30/22 11:00 Actual Procedures p Total Hip Arthroplasty with cerglage cables(Left) - Sneha Martin MD Surgical History (Last Reviewed 08/01/22 @ 07:53 by Karma Quiroz PA-C) No history of previous surgery Medical History (Last Reviewed 08/01/22 @ 07:53 by Karma Quiroz PA-C) Asthma Physical Therapy Inpatient Evaluation/Re-Eval M1 PT/OT-IP Prior Functional Status Start: 08/01/22 08:41 Freq: NEEDED Status: Active Protocol: Document 08/01/22 09:45 AW (Rec: 08/01/22 11:30 AW [id number]) Medical Review Prior Functional Status Medical History Reviewed Yes Communication WNL Mobility and Gait Independent Activities of Daily Living and IADL's Independent. Due to B hip pain , pt states she could do a few hours of housework before needing a break and then she would be done for the day. Prior Functional Level (Other details) Both hips had severe OA. Pt was scheduled for R GALILEA September 09. Social History Household Members children Living Arrangements House Number of Floors (Floors) Two Floors Number of Stairs To Enter/Railing? 1 SHAVON no rail. Inside, pt will be able to stay on the entry level account manager but there is no shower downstairs. There are no railings on the stairs to the second level. Home Environment Standard Height Toilet,Walk in Shower,Built-In Shower Seat Home Equipment Hand Held Shower Additional Social History Comment Pt lives with her 31 year old son, Gus, who works 2-3 days per week. Her 17 yo son also lives in the house. He goes to school in [facility] so is gone most of the day. Pt states she may be able to have her friends stay with her during the day as needed. M2 PT-IP Current Condition Start: 08/01/22 08:41 Freq: NEEDED Status: Active Protocol: Document 08/01/22 09:45 AW (Rec: 08/01/22 11:30 AW [id number]) Physical Therapy Current Condition Current Condition Evaluation Date 08/01/22 Treatment Diagnosis L GALILEA to repair intertroch fracture; difficulty in walking Onset Date 07/29/22 M3 PT-IP Subjective Start: 08/01/22 08:41 Freq: NEEDED Status: Active Protocol: Document 08/01/22 09:45 AW (Rec: 08/01/22 11:30 AW [id number]) Subjective Physical Therapy Visit Type Type Initial Evaluation Visit Start Time 09:19 Visit Stop Time 09:45 Total Visit Minutes 21 Notes Pt not seen on POD1 due to no rehab staff on Monday. Physical Therapy Visit Comments Patient Comments Pt is willing to participate with PT. She has been up to the commode already but has not walked. Patient Goals Return home with family support Therapy Pain Assessment Pain When Pain Assessed During Mobility Pain Present Pain Present Pain Reported Location left hip Intensity 5 Scale Used Numeric (0 - 10) Pain Management Techniques Apply Cold,Distraction, Modification of Treatment, Timing of Activity with Medications M4 PT-IP Mobility and Gait Start: 08/01/22 08:41 Freq: NEEDED Status: Active Protocol: Document 08/01/22 09:45 AW (Rec: 08/01/22 11:30 AW [id number]) PT-Bed Mobility Assessment Supine to Sit Supine to Sit Minimal Assistance,1 Person Assistance PT-Transfer Assessment Sit to and From Stand Sit to and from Stand Contact Guard Assistance,Use of Upper Extremities Equipment Transfer Assistive Device Gait Belt,Front Wheeled Walker Orthotic/Prosthetic Devices or Brace: No Transfers Transfer Destination Chair Transfer Technique Stand Step Pivot Transfer Ability Level of Assist Standby Assistance Comments Mobility Comments Pt was lying in bed as PT arrived. She had just returned to bed from the commode. Educated pt on posterior hip precautions. PT provided min A for pt to move LLE toward L EOB as well as cues to maintain precautions. Pt sat EOB with and without UE support. She stood CGA and needed cues to avoid excessive hip flexion. Pt transferred to the chair. During transfer, UE weightbearing on the walker was significant and pt avoided putting too much weight on LLE, preferring to TTWB. PT educated pt on WBAT status and importance of bearing weight to tolerance for healing and functional strength. Pt stood from the chair CGA and used FWW to ambulate 40' SBA with cues for LLE WBAT. She returned to the chair, stating she was too tired for further activity. She stated she thought she needed her inhaler. RN was notified. Pt was left in the chair with call light in reach as RN arrived. Gait Assessment Gait Gait Assistance Required: Standby Assistance Distance (Feet) 40 Able to Maintain Weight Bearing Status Yes During Gait Assistive Devices Assistive Device Gait Belt,Front Wheeled Walker Orthotic/Prosthetic Devices or Brace: No Gait Deviations General Gait Pattern Antalgic,Decreased Stride Length,Decreased Feet Clearance,Step-to Gait Factors Limiting Gait Function Factors Limiting Gait Function Decreased Activity Tolerance, Pain Comments Gait Comments See mobility comments for details. Stair Climbing Assessment Comments Stair Climbing Comments Not assessed at AM session. PT-Balance Assessment Sitting Balance and Reactions Static Sitting Balance Ability Normal Dynamic Sitting Balance Ability Normal Standing Balance and Reactions Static Standing Balance Ability Good Dynamic Standing Balance Ability Good Device Used FWW M5 PT-IP Objective Assessments Start: 08/01/22 08:41 Freq: NEEDED Status: Active Protocol: Document 08/01/22 09:45 AW (Rec: 08/01/22 11:30 AW [id number]) Orientation Orientation/Cognition Level of Alertness Alert Orientation Name,Day of Week,Place, Situation Language Function Ability No Deficits Noted Safety Awareness Understands Safety Issues Memory Description No Deficits Noted Gross Range of Motion Upper Extremity ROM Assessment Within Functional Limits Lower Extremity ROM Assessment Left Impaired Strength Upper Extremity Strength Assessment Within Functional Limits Lower Extremity Strength Assessment Left Impaired Hip 3+/5 secondary to pain Knee 4+/5 Ankle 5/5 Comments Strength Comments R hip 4/5. R knee and ankle 5/ 5 Sensation Assessment Sensation Gross Sensation WNL M6 PT-IP Treatment Start: 08/01/22 08:41 Freq: NEEDED Status: Active Protocol: Document 08/01/22 09:45 AW (Rec: 08/01/22 11:30 AW [id number]) Physical Therapy Treatment Education Education Provided Precautions,Weight Bearing Status,Post-Op Packet,Safety M7 PT-IP Assessment and Plan Start: 08/01/22 08:41 Freq: NEEDED Status: Active Protocol: Document 08/01/22 09:45 AW (Rec: 08/01/22 11:30 AW [id number]) PT Summary Assessment and Plan Potential Rehabilitation Potential Good Status of Condition at Evaluation Stable Summary Impairments Pain,Strength,Bed Mobility, Transfers,Gait Assessment Summary Margarita is a 57 yo woman seen for PT evaluation on POD2 following R GALILEA with posterior approach. Pt fell at home while playing with grandchildren and sustained L intertrochanteric femur fracture. Due to the quality of her joint, GALILEA was elected. Of note, pt has severe OA in both hips and is scheduled for R GALILEA on 09/09/22. Pt is independent in all regards at baseline but notes some limits to activity tolerance due to bilateral hip pain. On assessment today, she needed min A to move on the bed, CGA to stand with FWW, and SBA to ambulate 40 feet with FWW. Pt will need a FWW to go home. She will need to progress her gait distance and undergo stair training. PT anticipates she will be safe to discharge home with assist from family and friends once training is complete and she is medically stable. She would benefit from home health PT due to limited assist at home, pain in bilateral hips, and now inability to drive. Goals Bed Mobility Goal Standby Assistance Transfer Goal Standby Assistance,Front Wheeled Walker Gait Goal Standby Assistance,Front Wheel Walker Gait Distance 75 Other Goals - up/down 1 platform step with FWW CGA Days to Meet Goals 3 Frequency of Treatment Frequency Of Treatment Twice a Day Treatment Plan Physical Therapy Treatment Plan Bed Mobility Training,Transfer Training,Gait Training, Therapeutic Exercise,Balance Retraining,Post Op Education, Discharge Planning,Hot or Cold Pack,Neuromuscular Re-ed Other Recommendations and Next Treatment ther ex; stairs Focus Precautions Posterior Hip Precautions No Hip Flexion > 90 degrees Weight Bearing Status Weight Bearing Status Weight Bear as Tolerated Allowed Weight Bearing Amount (enter % WBAT LLE or #) (%) Recommendations To Nursing Amount of Assist Needed Standby Assistance,1 Person Assist Discharge Recommendations PT Discharge Recommendations Home with Assistance,Home Health Equipment Needed for Home Before FWW, BSC, weight shifter, shoe Discharge horn Transportation Needs at Discharge Private Vehicle
--- NOTE | 2022-08-01 11:26 | CM.DPC ---
DCP: This CM spoke with pt with regards to available HH services and reviewed current ratings with her via IPAD. Pt is agreeable to attempt services with [facility], [facility], and [facility] in that order based on star ratings. [facility] is currently reviewing for acceptance. This CM spoke with Lenny and Nicky scanned in Faced to face for this cm. Plan: Home with HH, awaiting [facility] confirmation acceptance. Rianna Sandoval RN Case Manager
[2022-08-01] MEDS: OXYCODONE IR 10 MG TABLET PO (12:28)
--- NOTE | 2022-08-01 13:21 | PT.IPTN ---
Current Diagnoses Acute cystitis with hematuria (07/30/22) Fracture of unspecified part of neck of left femur, initial encounter for closed fracture (07/30/22) Procedure and treatment not carried out because of other contraindication (07/30/22) Presence of unspecified artificial hip joint (07/30/22) Surgery Performed Operation Date: 07/30/22 11:00 Actual Procedures p Total Hip Arthroplasty with cerglage cables(Left) - Sneha Martin MD Physical Therapy Treatment Note M2 PT-IP Current Condition Start: 08/01/22 08:41 Freq: NEEDED Status: Active Protocol: Document 08/01/22 09:45 AW (Rec: 08/01/22 11:30 AW [id number]) Physical Therapy Current Condition Current Condition Evaluation Date 08/01/22 Treatment Diagnosis L GALILEA to repair intertroch fracture; difficulty in walking Onset Date 07/29/22 M3 PT-IP Subjective Start: 08/01/22 08:41 Freq: NEEDED Status: Active Protocol: Document 08/01/22 13:21 AW (Rec: 08/01/22 13:38 AW [id number]) Subjective Physical Therapy Visit Type Type Treatment Note Visit Start Time 12:56 Visit Stop Time 13:21 Total Visit Minutes 25 Notes Pt's daughter is present throughout tx Physical Therapy Visit Comments Patient Comments Pt's daughter notes she has acquired a raised toilet seat with handles and a business objects report developer. Patient Goals Return home with family support Therapy Pain Assessment Pain When Pain Assessed During Mobility Pain Present Pain Present Pain Reported Location left hip Intensity 5 Scale Used Numeric (0 - 10) Pain Management Techniques Apply Cold,Distraction, Modification of Treatment, Timing of Activity with Medications M4 PT-IP Mobility and Gait Start: 08/01/22 08:41 Freq: NEEDED Status: Active Protocol: Document 08/01/22 13:21 AW (Rec: 08/01/22 13:38 AW [id number]) PT-Bed Mobility Assessment Supine to Sit Supine to Sit Minimal Assistance,1 Person Assistance PT-Transfer Assessment Sit to and From Stand Sit to and from Stand Standby Assistance,Use of Upper Extremities Equipment Transfer Assistive Device Gait Belt,Front Wheeled Walker Orthotic/Prosthetic Devices or Brace: No Transfers Transfer Destination Toilet Transfer Technique ambulated with FWW Transfer Ability Level of Assist Standby Assistance Comments Mobility Comments Pt was lying in bed as PT arrived. PT continued education with pt and her daughter on posterior hip precautions. Pt needed min A to move her LLE toward EOB but completed supine to sit CGA. She stood with min cues for precautions and used FWW to ambulate to the toilet. She sat on the toilet with heavy use of grab bar. She voided and completed pericare without assist. She stood CGA and heavy use of the grab bar. She used FWW to walk to the sink SBA where she was able to wash her hands, reaching outside [place] with no LOB. Pt ambulated 25 feet into the hallway and completed stair training. She returned to the room and wanted to go back to bed. Min A to elevate LLE to the bed. Pt was left with call light in reach. Gait Assessment Gait Gait Assistance Required: Standby Assistance Distance (Feet) 60 Able to Maintain Weight Bearing Status Yes During Gait Assistive Devices Assistive Device Gait Belt,Front Wheeled Walker Orthotic/Prosthetic Devices or Brace: No Gait Deviations General Gait Pattern Antalgic,Decreased Stride Length,Decreased Feet Clearance,Step-to Gait Factors Limiting Gait Function Factors Limiting Gait Function Decreased Activity Tolerance, Pain Comments Gait Comments Pt is hesitant at first but improves her LLE weight acceptance with increased distance. Stair Climbing Assessment Evaluation Level of Assist On Stairs Contact Guard Assistance Devices Stair Climbing Assistive Devices Front Wheel Walker Technique/Endurance Stair Climbing Direction Ascend and Descend Stair Climbing Technique Step to Step Number of Steps Climbed 1 Stair Climbing Set # Repetitions (reps) 1 Comments Stair Climbing Comments After education on technique, pt was able to ascend/descend with FWW CGA. No further cues needed. PT-Balance Assessment Sitting Balance and Reactions Static Sitting Balance Ability Normal Dynamic Sitting Balance Ability Normal Standing Balance and Reactions Static Standing Balance Ability Good Dynamic Standing Balance Ability Good Device Used FWW M5 PT-IP Objective Assessments Start: 08/01/22 08:41 Freq: NEEDED Status: Active Protocol: Document 08/01/22 09:45 AW (Rec: 08/01/22 11:30 AW [id number]) Orientation Orientation/Cognition Level of Alertness Alert Orientation Name,Day of Week,Place, Situation Language Function Ability No Deficits Noted Safety Awareness Understands Safety Issues Memory Description No Deficits Noted Gross Range of Motion Upper Extremity ROM Assessment Within Functional Limits Lower Extremity ROM Assessment Left Impaired Strength Upper Extremity Strength Assessment Within Functional Limits Lower Extremity Strength Assessment Left Impaired Hip 3+/5 secondary to pain Knee 4+/5 Ankle 5/5 Comments Strength Comments R hip 4/5. R knee and ankle 5/ 5 Sensation Assessment Sensation Gross Sensation WNL M6 PT-IP Treatment Start: 08/01/22 08:41 Freq: NEEDED Status: Active Protocol: Document 08/01/22 13:21 AW (Rec: 08/01/22 13:38 AW [id number]) Physical Therapy Treatment Education Education Provided Precautions,Weight Bearing Status,Safety Equipment Issued Equipment Type and Company Issued FWW from [email or web address]. Pt signed paperwork. Other Treatments Other Treatment Performed Reviewed post-op exercises with pt who demonstrated good understanding. M7 PT-IP Assessment and Plan Start: 08/01/22 08:41 Freq: NEEDED Status: Active Protocol: Document 08/01/22 13:21 AW (Rec: 08/01/22 13:38 AW [id number]) PT Summary Assessment and Plan Summary Impairments Pain,Strength,Bed Mobility, Transfers,Gait Progress Towards Goals Progressing Toward Goals Assessment Summary Margarita was able to improve her LLE weightbearing, gait distance, and was able to manage stairs. Her daughter was present and receptive to education on post-op precautions. Daughter will be available frequently over the first week at home. PT recommending home discharge with assist and home health PT . Goals Bed Mobility Goal Standby Assistance Transfer Goal Standby Assistance,Front Wheeled Walker Gait Goal Standby Assistance,Front Wheel Walker Gait Distance 75 Other Goals - up/down 1 platform step with FWW CGA Days to Meet Goals 3 Frequency of Treatment Frequency Of Treatment Twice a Day Treatment Plan Physical Therapy Treatment Plan Bed Mobility Training,Transfer Training,Gait Training, Therapeutic Exercise,Balance Retraining,Post Op Education, Discharge Planning,Hot or Cold Pack,Neuromuscular Re-ed Other Recommendations and Next Treatment ther ex; stairs Focus Precautions Posterior Hip Precautions No Hip Flexion > 90 degrees,No Hip Internal Rotation,No Hip Adduction Weight Bearing Status Weight Bearing Status Weight Bear as Tolerated Allowed Weight Bearing Amount (enter % WBAT LLE or #) (%) Recommendations To Nursing Amount of Assist Needed Standby Assistance,1 Person Assist Discharge Recommendations PT Discharge Recommendations Home with Assistance,Home Health Transportation Needs at Discharge Private Vehicle
--- NOTE | 2022-08-01 14:19 | PC.NURSE ---
Addendum entered by Sapna Keith R.N. 08/01/22 14:36: She and daughter verbalize understanding of site care, s/sx of complications, medications, posterior hip precautions, site care, and follow up appointment. 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 Original Note: Pt is A&OX3, VSS, afebrile on RA. Incision to L posterior hip C/D/I. She reports tenderness over the region 5/10 although very minimal at rest. She states pain is well controlled with scheduled tylenol, ibupron and oxycodone. She is medicated after shower and working with PT today with prn 10 mg oxycodone with good effect. She has her navarrete catheter dc'd this a.m. and is able to void this afternoon. Per surgical PA and PT/OT she is cleared for discharge home with FWW, with daughter. She verbalizes understanding of discharge
--- NOTE | 2022-08-02 12:50 | CM.DPNOTE ---
Late entry - Kelsea called from [place], , after receiving a call from Rianna regarding Home Health services. I explained to Kelsea that [facility] declined services for patient due to her insurance. Kelsea said she will have one of their manager rn case reach out to patient to assist in this situation. Nicky Fernandes, MICHAEL Film Reader.
--- NOTE | 2022-08-02 16:35 | CM.DPC ---
Dcp: This CM was unable to find HH service to accommodate pt needs. This CM reached out and sent referrals to [facility] and [facility] who stated that they could not accommodate pt due to insurance of medicaid. This CM reached out to [facility] and requested a CM follow pt to assure she is safe with her transition home. Nicky Martins CM support spoke with [facility] provider while this cm was at lunch. This CM called an updated pt of inability to provide HH services but that [facility] would be reaching out to her. Pt verbalized understanding and agreement. Rianna Sandoval, drawing kiln supervisor
== END 2022-08-01 14:35 | disposition home or self-care (01) | DRG 323 ==
LOC: ED 23:47 → AC 07-30 00:03
PROVIDERS: Neuromusculoskeletal Medicine, Sports Medicine; Orthopaedic Surgery; Admitting Provider Nurse Practitioner Family; Emergency Provider Emergency Medicine; Referring Provider Emergency Medicine; Visit Provider Nurse Practitioner Family
PROC: 0SRB0JZ Replacement of Left Hip Joint with Synthetic Substitute, Open Approach (ICD-10-PCS; CPT 27130; principal; 2022-07-30 11:00)
DX: S72.142A Displaced intertrochanteric fracture of left femur, initial encounter for closed fracture (principal); J45.909 Unspecified asthma, uncomplicated; M16.12 Unilateral primary osteoarthritis, left hip; N39.0 Urinary tract infection, site not specified; W18.30XA Fall on same level, unspecified, initial encounter; Z20.822 Contact with and (suspected) exposure to COVID-19
CPT/HCPCS: 36415; 73502; 80048; 80053; 81001; 81015; 83690; 83735; 85025; 85610; 87077; 87086; 87186; 87635; 96374; 96375; 97161; 97530; 99284; C1776; C9803; C9290; J0690; J0696; J1100; J1170; J2250; J2270; J2405; J2704; J3010; J3360

== ENCOUNTER → 2023-02-22 09:27 | Outpatient (CLI) | payer OTHER, MEDICAID, SELFPAY ==
[2022-07-30 00:06] VITALS: BMI 30.4
== END ==
PROVIDERS: Visit Provider Student in an Organized Health Care Education/Training Program
DX: R30.0 Dysuria (principal)
CPT/HCPCS: 81002; 87086

== ENCOUNTER → 2023-05-08 09:58 | Outpatient (CLI) | payer OTHER, MEDICAID, SELFPAY ==
[2022-07-30 00:06] VITALS: BMI 30.4
[2023-05-08 10:41] LABS: Add Manual Diff / Slide Review NO; Basophils Absolute Auto 100 /uL (0-100); Basophils Percent Auto 1.1 % (0-2); Eosinophils Absolute Auto 600 /uL (0-450); Eosinophils Percent Auto 11.3 % (2-4); Hematocrit 42.4 % (36-46); Hemoglobin 14.5 g/dL (12.0-16.0); Lymphocytes Absolute Auto 1200 /uL (1100-4500); Lymphocytes Percent Auto 21.3 % (25-40); Mean Corpuscular HGB Conc 34.3 % (30-36); Mean Corpuscular Hemoglobin 31.7 PG (26-34); Mean Corpuscular Volume 92.4 fL (80-100); Monocytes Absolute Auto 400 /uL (0-900); Monocytes Percent Auto 6.2 % (3-14); Neutrophils Absolute Auto 3400 /uL (1500-7000); Neutrophils Percent Auto 60.1 % (50-75); Platelet Count 308 X10^3/uL (150-400); Red Blood Cell Count 4.59 X10^6/uL (4.0-5.2); Red Cell Distribution Width 13.3 % (11.6-14.8); White Blood Cell Count 5.6 X10^3/uL (4.5-11.0)
[2023-05-08 10:49] LABS: Hemoglobin A1C% w Est Avg Glu 5.7 % (4.0-6.0)
[2023-05-08 11:05] LABS: BUN Creatinine Ratio 16.3 (6-22); Blood Urea Nitrogen 15 mg/dL (7-17); Carbon Dioxide 26 mmol/L (22-32); Chloride 103 mmol/L (98-107); Estimated Glomerular Filt Rate > 60 mL/min (>60); Glucose 104 mg/dL (80-110); HEMOLYSIS < 15 (0-50); Potassium 4.3 mmol/L (3.4-5.1); Sodium 137 mmol/L (137-145)
[2023-05-08 11:12] LABS: Prealbumin 28.3 mg/dL (17.6-36.0)
[2023-05-08 11:13] LABS: Vitamin D 25 Hydroxy (D3) 36.1 ng/mL (30.0-100.0)
== END ==
PROVIDERS: Referring Provider Orthopaedic Surgery Adult Reconstructive Orthopaedic Surgery; Visit Provider Orthopaedic Surgery Adult Reconstructive Orthopaedic Surgery
DX: Z01.812 Encounter for preprocedural laboratory examination (principal); Z01.818 Encounter for other preprocedural examination; R77.0 Abnormality of albumin; E55.9 Vitamin D deficiency, unspecified; R73.9 Hyperglycemia, unspecified
CPT/HCPCS: 36415; 80048; 82306; 83036; 84134; 85025; 93005

== ENCOUNTER → 2023-06-16 11:43 | Outpatient (CLI) | payer OTHER, MEDICAID, SELFPAY ==
[2022-07-30 00:06] VITALS: BMI 30.4
--- NOTE | 2023-06-16 12:10 | DI.RAD.S_ITS ---
Bone Density Report Name: DIANE LEWIS Age: 58 Sex: Female Ethnicity: White Date of : 1965 Indication: postmenopausal; screening for osteoporosis; prior fracture; Referring Provider: ARACELIS JOSHUA Study: Bone densitometry was performed. Exam Date: June 16, 2023 Accession number: [id number] Bone Density: Region BMD T-score Z-score Classification AP Spine(L2, L3, L4) 0.712 -3.3 -1.9 Osteoporosis Femoral Neck (Right) 0.473 -3.4 -2.1 Osteoporosis Total Hip (Right) 0.467 -3.9 -2.9 Osteoporosis Total Forearm (Left) 0.520 -1.1 0.2 Osteopenia 1/3 Forearm (Left) 0.600 -1.6 -0.3 Osteopenia UD Forearm (Left) 0.413 -0.5 0.4 Normal World Health Organization criteria for BMD impression classify patients as: Normal (T-score at or above -1.0), Osteopenia (T-score between -1.0 and -2.5), or Osteoporosis (T-score at or below -2.5). 10-year Fracture Risk: FRAX not reported because: Some T-score for Spine Total or Hip Total or Femoral Neck at or below -2.5 Prior hip or vertebral fracture Impression: The patient has established osteoporosis, based on the Right Total Hip T-score and the existence of a prior fracture. The patient has risk factors, including: previous fracture. Discussion: HIGH RISK OF FRACTURE. BONE DENSITY IS UNDESIRABLY LOW AT ONE OR MORE SKELETAL SITES, CONSISTENT WITH POSTMENOPAUSAL OSTEOPOROSIS. This patient's lowest T-score, in a patient who has previously fractured, meets the World Health Organization's (WHO) criteria for severe osteoporosis. In untreated patients, the risk of osteoporotic fracture increases approximately two-fold for each 1.0 SD decrease in T-score. Low bone density is not the only risk factor for fracture; also consider factors such as patient's age, frailty or poor health, risk of falling, risk of injury, previous osteoporotic fracture, family history of osteoporosis, cigarette smoking, low body weight, etc. Not everyone with low bone mineral density has osteoporosis; osteomalacia and other metabolic bone disorders should also be considered. Patients who have osteoporosis should be evaluated for specific diseases and conditions (secondary causes) that may cause or contribute to bone loss. The [place] [employer]ocrinologists (AACE) and National Osteoporosis Foundation (NOF) recommend pharmacologic intervention for all postmenopausal women with a previous hip or vertebral fracture and a T-score in this range. The patient should follow a healthful lifestyle (good nutrition with adequate calcium and vitamin D, and appropriate weight-bearing exercise). Follow-Up: Consider a repeat BMD and Vertebral Fracture Assessment (VFA) exam in 2 years or sooner if medically necessary, to reassess this patient's status. Reported by: WILBERTO BRODY M.D. on 06/16/2023 12:39:00 PM.
== END ==
LOC: RAD 11:44
PROVIDERS: Referring Provider Orthopaedic Surgery Adult Reconstructive Orthopaedic Surgery; Visit Provider Orthopaedic Surgery Adult Reconstructive Orthopaedic Surgery
DX: M16.11 Unilateral primary osteoarthritis, right hip (principal); M81.0 Age-related osteoporosis without current pathological fracture
CPT/HCPCS: 77080; 77081

== ENCOUNTER 2023-06-19 10:29 | Day surgery (SDC) | payer OTHER, MEDICAID, SELFPAY ==
[2022-07-30 00:06] VITALS: BMI 30.4
[2023-06-13 13:59] VITALS: BMI 29.2
[2023-06-19] VITALS (11 sets, daily range): BP systolic 90–133; BP diastolic 47–83; PULSE 68–79; RESP 14–20; TEMP 36.1–37.1; O2SAT 93–98; BMI 29.2
--- NOTE | 2023-06-19 06:00 | DI.RAD.S_ITS ---
PROCEDURE: XR HIP W PEL IF DONE RT 2V INDICATIONS: GALILEA TECHNIQUE: 2 fluoroscopic view(s) of the hip acquired. COMPARISON: [facility], CR, XR HIP W PEL IF DONE LT 2V, 07/30/2022, 14:17. FINDINGS: Bones: Patient is status post right hip arthroplasty. Two intraoperative fluoroscopic images are provided for nondiagnostic interpretation. Please see operative report for details. IMPRESSION: Two intraoperative fluoroscopic images of right hip arthroplasty. Please see operative report for details. Dictated by: Usama Almendarez M.D. on 06/19/2023 at 21:46 Approved by: Usama Almendarez M.D. on 06/19/2023 at 21:48
[2023-06-19] MEDS: LACTATED RINGERS 1,000 ML 42 ML IV (11:18)
[2023-06-19] MEDS: MELOXICAM 7.5 MG TABLET PO (11:19)
[2023-06-19] MEDS: ACETAMINOPHEN 325 MG TABLET 975 MG PO (11:19)
[2023-06-19] MEDS: ALBUTEROL/IPRATROPIUM 3 ML AMPUL INH (11:40)
--- NOTE | 2023-06-19 12:14 | PM.PREOP ---
Pre-operative Note Interval Note History & Physical reviewed/Exam performed by Physician: Yes Changes to H&P: No
[2023-06-19] MEDS: CEFAZOLIN 2 GM/100 ML PREMIX 100 ML IV ×2 (12:25→20:39)
[2023-06-19] MEDS: TRANEXAMIC ACID 1,000 MG VIAL 1000 MG INJ (12:35)
--- NOTE | 2023-06-19 13:10 | SUR.OPER ---
Supine on padded [place] table with bilateral legs secured in padded positioning boots and suspended in positioning spars, operative leg in traction per surgeon. Head on one pillow. Arm on non-operative side secured on padded armboard <90 degrees abduction. Arm on operative side padded and resting across chest then secured with tape over sheet. Padded perineal post in place per surgeon.
[2023-06-19] MEDS: ROPIVACAINE/EPI/CLONIDINE/KET 50 ML SYRINGE INJ (14:41)
[2023-06-19] MEDS: SODIUM CHLORIDE IRRIG SOLUTION 250 ML, POVIDONE-IODINE SPONGE STICKS 1 APPLIC IRR (14:42)
--- NOTE | 2023-06-19 15:04 | P.OP_ITS ---
Operative Date/Time/Diagnoses Date of procedure: 06/19/23 Pre-op diagnosis: Right hip arthritis Post-op diagnosis: same Procedure & Clinicians Procedure: Cemented right total hip arthroplasty Same procedure as scheduled: Yes Surgeon: Wang Richmond Poultry Cutter: Jerad Martines Anesthesia Type: General and Local Operative Notes Estimated Blood Loss (mL): 250 Procedure in detail: Implants: ? Depuy Troup Gription size 50 cup with 2 screws ? Depuy cemented C-Stem femoral stem size 4 high offset ? 32 mm + 9 ceramic femoral head Procedure Summary: This patient had a DEXA scan with a T-score in the right hip of-3.4 and had previously sustained a intertrochanteric fracture on her contralateral hip. Despite being 58 years old given her profound osteoporosis I recommended proceeding with a cemented total hip arthroplasty. Her sizes ended up being larger than initially templated. This was on both the acetabular and stem sides. I attributed this to magnification areas in the preoperative templating radiograph Procedure in Detail: This patient was seen preoperatively and evaluated for hip pain which was refractory to numerous nonoperative treatment modalities. Their hip pain correlated with radiographic changes demonstrating significant degeneration in the hip joint. The risks and benefits of continued nonoperative management versus operative management were discussed at length and all of the patient?s questions were answered. Additional educational materials providing further details beyond our discussion in clinic were provided via a publicly available patient education video which included the incidence of medical complications associated with total hip arthroplasty, reasons for revision following total hip arthroplasty, and patient satisfaction rates following total hip arthroplasty. That video can be accessed at ?[email or web address] . With this understanding of the risks inherent to the procedure, the patient elected to move forward with operative management. Following preoperative optimization, the patient was scheduled for surgery. The patient was met in the preoperative holding area the day of the procedure and all questions were answered. The patient?s nares were swabbed with betadine in order to decolonize them from MRSA. Informed consent was signed and the operative limb was marked with indelible ink. The patient was brought back to the operating room where anesthesia was induced. The patient was transferred to the Lesage table and all bony prominences were padded. The operative site was prepped and draped in the usual sterile fashion. Prior to incision, tranexamic acid and cefazolin were administered. Operative templating images were displayed demonstrating the anticipated implant sizes and correct operative extremity. A timeout procedure was performed verifying the patient?s identity, medical comorbidities, allergies, relevant medications, anesthesia type and the surgical plan. All present were in agreement. The assistance of a physician assistant editor was required for positioning, room setup, soft tissue retraction and wound closure. Without this assistance, the procedure would have been significantly more challenging and time consuming. ? A direct anterior approach to the hip was utilized. This was performed with a longitudinal incision through a Heuter interval. The incision was planned 2 cm distal and 2 cm lateral to the ASIS extending towards the lateral patella, in line with the muscle body of the TFL. Following incision, the subcutaneous tissue was dissected while taking care to avoid injury to the lateral femoral cutaneous nerve. The fascia overlying the TFL was identified by dissecting off the overlying fat and identifying perforating vessels to the TFL. The TFL fascia was incised and dissected away from the medial border of the TFL. A cobra retractor was placed over the superior femoral neck between the abductors and the hip capsule and used to reflect the TFL laterally. A [place] self-retainer was then placed in the distal aspect of the wound between the TFL and the rectus femoris. This was tensioned to open up the direct anterior interval and the lateral circumflex vessels were identified and coagulated using electrocautery. The floor of the TFL fascia was incised, exposing the pericapsular fat overlying the hip capsule. A second cobra retractor was placed on the inferior femoral neck. A double-bent soft tissue retractor was placed on the anterior wall of the acetabulum and used to tension the reflected head of rectus femoris, which was then released in order to limit soft tissue tension. A capsulotomy was made in the midline of the anterior hip capsule in line with the femoral neck ending at the vastus tubercle. The double-bent retractor was removed in order to limit the amount of time that a soft tissue retractor remained on the anterior wall and protect the femoral nerve. Tag stitches were placed in the superior and inferior leaflets of the hip capsule. An Ariel soft tissue retractor was introduced over the tag stitches and tensioned in the interval between the rectus femoris and the TFL in order to retract and protect those muscles. The cobra retractors were replaced intracapsularly, with one over the superior neck in the pocket created by the base of the greater trochanter and the other on the femoral head. The capsulotomy was extended laterally to the base of the greater trochanter and medially to the lesser trochanter. This required externally rotating the hip. Once the lesser trochanter had been identified, a neck cut was planned according to measurements from preoperative templating. A ruler was cut at the length measured between the superior aspect of the lesser trochanter and the collar of the prosthesis. This line was extended towards the inferior aspect of the lateral cobra retractor to plan a cut which would leave minimal residual femoral neck laterally. The neck was cut at 60 degrees of external rotation along that line. A second cut was performed to remove a large napkin ring and facilitate head extraction. The napkin ring cut and femoral head were removed. ? A broad anterior wall retractor was placed between the labrum and the anterior capsule so that the anterior capsule would prevent capturing and pinching the femoral nerve anteriorly. An additional retractor was placed on the posterior wall. External rotation and traction were applied through the Lesage table so that the cut surface of the femoral neck would not restrict access to the acetabulum. The labrum was excised sharply and the pulvinar was excised with electrocautery to limit bleeding from branches of the obturator artery. Acetabular reamers were selected based on preoperative templating and measurements of the excised femoral head. These were introduced into the acetabulum. Fluoroscopy was utilized to replicate a standing AP pelvis radiograph by centering over the pelvis, rotating until there was appropriate symmetry between the obturator foramen, and introducing caudal tilt to match the position of the pubic symphysis relative to the sacrococcygeal junction according to the patient?s anatomy. Fluoroscopy was utilized to ensure appropriate reaming depth. Once satisfied with the reaming depth corresponding to the preoperative template and the pinch fit between the columns, an appropriate sized acetabular cup was selected which would provide 1 mm of press-fit. This cup was introduced and manipulated until appropriate abduction and anteversion angles were obtained with careful attention to appropriate abduction and anteversion angles as evaluated by the position of the cup relative to the anterior and posterior dunham of the acetabulum and the AP fluoroscopy which recreated the patient?s standing radiograph. The cup was impacted into place. Two screws were placed to provide additional fixation. Peripheral osteophytes were removed. The acetabular liner was then placed with care to ensure locking of the locking mechanism. Attention was then turned to the femur. All retractors were removed, traction was released, a retractor was placed in the interval between the hip capsule and the gluteus minimus, and the hip was externally rotated to 90 degrees. Traction was applied through the Lesage table to tension the lateral capsule and this was released using electrocautery. Traction was released and a Lesage hook was placed posteriorly around the proximal femur at the level of the vastus ridge. The table height was lowered in order to restrict the tension on the anterior structures during hip hyperextension to limit the risk of femoral nerve palsy. With traction off and the hip at 90 degrees of external rotation, the hip was hyperextended and adducted while manually elevating the femur away from the acetabulum with the Lesage hook to ensure it would not be caught behind the greater trochanter. An asymmetric retractor was placed over the calcar and a broad double-pronged retractor was placed over the greater trochanter. The tag stitch capturing the lateral leaflet of the capsule was moved to the medial side, leaving the conjoined and piriformis tendons isolated in the face of the greater trochanter. The hip was externally rotated and elevated. A release of the conjoined tendon was not necessary in order to obtain adequate exposure for broaching. The canal was opened with an opening broach and a rasp was used to remove cancellous bone. A rongeur was used to remove the residual lateral bone at the base of the greater trochanter to avoid placing the stem in varus. The femur was then broached to the appropriate sized stem yielding good rotational fit and fill of the canal as well as appropriate version of the stem trial. Neck and head trials were placed, all retractors were removed and the hip was returned to neutral abduction and extension. I then reduced the hip. An AP pelvis fluoroscopic image matching the preoperative standing radiograph was obt ained with both lesser trochanters visible and both hips in 40 degrees of external rotation. This demonstrated instability with both. An AP hip fluoroscopic image was obtained with the hip in neutral rotation which demonstrated that the stem was undersized. Hip stability was evaluated with 90 degrees of external rotation and a 45 degree drop test which demonstrated instability. At this point in time there was a size 1 broach in with a standard offset neck and a +1.5 head. I sequentially broached up to a size 4 stem with a high offset neck and a +9 head. This achieved stability. The hip was noted to be slightly long on the AP pelvis radiograph and to have good canal fill on the AP hip radiograph. Being satisfied with this construct I move forward with the cementing process. The hip was dislocated and I returned to the broaching position. I alerted the anesthesia team that we would soon begin cementation to ensure maintenance of appropriate blood pressure during this process. I used a canal butadiene converter utility operator to clean the canal. I measured the length of the stem and placed a cement restrictor into the canal at the corresponding depth. I again used a canal butadiene converter utility operator to clean the femur. I placed a whistletip catheter in the femur extending down to the cement restrictor to remove any blood that collected there. I placed epinephrine soaked gauze in the canal. I filled the canal with c ement and pressurized it. The definitive stem was placed and the cement was allowed to dry. Excess cement was removed. The trunnion was cleaned and dried. I placed a ceramic head onto the trunnion and impacted it into place on the Lowe taper.??All retractors were removed and the hip was reduced. A dilute mixture of betadine and peroxide was used to bathe the soft tissues during final fluoroscopic assessment. Appropriate component positioning was confirmed on an AP pelvis radiograph with the operative and nonoperative legs in 40 degrees of external rotation, evaluating leg length and offset. Appropriate stem fill was evaluated on an AP hip radiograph with the operative leg in neutral rotation. No fractures were identified on these radiographs. Stability was satisfactory with a 90 degree external rotation test as well as a 45 degree drop test. The hip was copiously irrigated with pulse lavage. The capsule was closed with absorbable interrupted suture. The TFL fascia was closed with barbed suture while carefully protecting the lateral femoral cutaneous nerve from entrapment. A mixture of Ropivacaine, Epinephrine, Clonidine and Toradol was infiltrated throughout the soft tissues. The skin was closed with 2-0 and 3-0 sutures. Surgical glue was applied and a soft dressing was placed. ? The sponge, instrument and needle counts were reported as being correct at the end of the case. ?No obvious complications occurred. The patient was transferred from the [facility] back to a stretcher. The patient emerged from anesthesia without difficulty and was taken to the PACU in a stable condition. Plan for aftercare: ? ? Anterior hip precautions ? Transfer to floor following recovery in PACU ? Transition from hospital gown to regular clothing immediately upon arrival on floor ? Weightbearing as tolerated ? ? Mobilization as soon as the patient has recovered from anesthesia. If physical therapists are unavailable at the time the patient is ready to ambulate, then nursing staff should help patient ambulate ? Aspirin 81 twice per day for DVT prophylaxis ? Multimodal pain regimen with no IV opioids ordered ? Anticipate discharge home tomorrow morning ? [facility] up at [facility] in 2 weeks ? Detailed postoperative instructions available at [email or web address]
--- NOTE | 2023-06-19 15:27 | DI.RAD.S_ITS ---
PROCEDURE: XR HIP W PEL IF DONE RT 2V INDICATIONS: RIGHT HIP POST OP TECHNIQUE: AP pelvis and lateral view of the hip acquired. COMPARISON: [facility], CR, XR PELVIS WITH LATERAL HIP RIGHT, 04/25/2023, 11:21. [facility], CR, XR HIP W PEL IF DONE RT 2V, 06/19/2023, 13:22. [facility], CR, XR HIP W PEL IF DONE LT 2V, 07/30/2022, 14:17. FINDINGS: Bones: Patient is status post right hip arthroplasty, with hardware components in expected positions. The hip joint appears congruent. The visualized bony structures appear intact. Left total hip arthroplasty appears unchanged. Soft tissues: Overlying postoperative changes are noted. No suspicious soft tissue densities. IMPRESSION: Expected post-operative appearance of a right hip arthroplasty. Stable appearance of the left hip arthroplasty. Approved by: Qamar Ayala M.D. on 06/19/2023 at 17:00
--- NOTE | 2023-06-19 16:32 | PC.NURSE ---
admit 1605 pt to AC from PACU. VSS. alert and oriented. aquacel dressing to anterior R hip CDI. Ice pack placed. CMS+ with brisk capillary refills. Denies nausea, tolerating water and coffee. LR infusing at 100cc/hr to R hand without difficulty. Continuous O2 monitor. Pt oriented to room and plan of care. Denies any questions. Instructed to notify staff prior to activity for assist.
[2023-06-19] MEDS: LACTATED RINGERS 1,000 ML 100 ML IV ×2 (16:49→18:05)
--- NOTE | 2023-06-19 17:45 | PC.NURSE ---
Assumed care of pt at 1700. A&Ox4, VSS on RA. No c/o pain. Aquacel dressing to R hip c/d/i. Lung sounds CTA, bowel sounds hypoactive. Pt oriented to room and call light, requesting to rest at this time. Bed in low position, SCDs on, call light within reach.
[2023-06-19] MEDS: OXYCODONE IR 5 MG TABLET PO (18:05)
[2023-06-19] MEDS: ALBUTEROL 2.5 MG/3 ML NEB (ADULT) INH (19:32)
[2023-06-19] MEDS: BUDESONIDE 0.5 MG/2 ML NEB INH (19:32)
[2023-06-19] MEDS: DOCUSATE 100 MG CAPSULE PO (20:39)
[2023-06-19] MEDS: ASPIRIN EC 81 MG TABLET PO (20:39)
[2023-06-20] MEDS: CEFAZOLIN 2 GM/100 ML PREMIX 100 ML IV (04:21)
[2023-06-20] MEDS: IBUPROFEN 600 MG TABLET PO ×2 (04:26→09:22)
[2023-06-20] MEDS: ACETAMINOPHEN 325 MG TABLET 650 MG PO ×2 (04:26→09:22)
[2023-06-20 06:45] LABS: Hemoglobin 9.9 g/dL (12.0-16.0)
[2023-06-20 07:00] VITALS: BP 82/39; PULSE 65; RESP 16; TEMP 36.4; O2SAT 95
--- NOTE | 2023-06-20 07:18 | PM.DS.1 ---
History of Present Illness History of Present Illness Date Patient Seen: 06/20/23 Time Patient Seen: 07:20 Chief complaint: OPB Narrative: This patient was seen preoperatively and evaluated for hip pain which was refractory to numerous nonoperative treatment modalities. Their hip pain correlated with radiographic changes demonstrating significant degeneration in the hip joint. The risks and benefits of continued nonoperative management versus operative management were discussed at length and all of the patient?s questions were answered. Additional educational materials providing further details beyond our discussion in clinic were provided via a publicly available patient education video which included the incidence of medical complications associated with total hip arthroplasty, reasons for revision following total hip arthroplasty, and patient satisfaction rates following total hip arthroplasty. With this understanding of the risks inherent to the procedure, the patient elected to move forward with operative management. This morning patient is feeling well. She has a minor pain over the surgical site. Pain is controlled with oral medication. She was able to get up and use the bathroom with assistance last night. Denies any fever chills nausea or vomiting. Discharge Providers Provider Date of admission: 06/19/2023 Discharge Date: 06/20/23 Consults: 06/19/23 06:00 Consult to Anesthesiology Routine Comment: Consulting Provider: Anesthesiologist Reason for consultation: Regional block for post operative pain control 06/19/23 16:12 Consult to Discharge Planning Routine Comment: Consult to Physical Therapy Evaluate & Treat Comment: Physician Instructions: post op GALILEA protocol Discharge provider: Rufus Newton PA-C Summary Hospital Course Discharge Diagnosis: Status post right hip arthroplasty. Hospital Course: Multimodal pain control. Physical therapy Status at Discharge Cognitive/behavioral status at discharge: oriented Functional status at discharge: uses cane/walker Overall status at discharge: patient is back to baseline Time Spent with Patient Time spent: Less than 30 minutes Exam Vital Signs (past 8 hours): - 06/20/23 05:21 Oxygen Delivery Method Room Air Oxygen Delivery Method Room Air Oxygen Flow Rate 0 Narrative Exam Narrative: Patient is found lying comfortably in bed. Dressing is clean no signs of drainage. No increased pain to compression along posterior thigh or calf. Able to dorsiflex and plantar flex the ankle against resistance bilaterally. Sensation grossly intact to lower extremities bilaterally. Const General: cooperative, healthy appearing and comfortable Orientation: alert and oriented x3 Resp Effort & Inspection: normal respiratory effort and able to speak in complete sentences Objective Labs 06/20/23 06:30 Labs: Laboratory Results - last 24 hr 06/20/23 06:30 Hgb 9.9 L Hct 28.0 L PFSH Medical History (Updated 06/13/23 @ 14:06 by Keerthi Mcbride RN) Sinus congestion Asthma Surgical History (Updated 06/13/23 @ 14:00 by Keerthi Mcbride RN) Status post total hip replacement, left (~07/30/22) Family History Mother Diabetes mellitus Father No problems noted. Social History household members: none Smoking Status: Never smoker alcohol intake: current substance use type: does not use Discharge Assessment & Plan Assessment and Plan Assessment: Status post right hip arthroplasty. Plan of Treatment: ? Weightbearing as tolerated ? ? Aspirin 81 twice per day for DVT prophylaxis Prescribed Ibuprofen 600mg three times a day for inflammation, oxycodone 5mg ever 4 hours as needed for pain, ? Discharge home Start PT in 7 to 10 days. ? Follow up at [facility] in 2 weeks Discharge Plan Discharge Plan Patient Disposition: Home Provider Discharge Comment: Discharge home pending PT approval Discharge orders & Medications Discharge Orders: Discharge (Order); Ordered 06/20/23 Ordered By: Rufus Newton Prescriptions: New acetaminophen 325 mg Tablet 650 mg PO Q6H Qty: 100 0RF aspirin 81 mg Tablet,Delayed Release (Dr/Ec) 81 mg PO BID Qty: 90 0RF ibuprofen 600 mg Tablet 600 mg PO TID Qty: 90 0RF ondansetron 4 mg Tablet,Disintegrating 4 mg PO Q6H PRN (Reason: Nausea) Qty: 10 0RF oxycodone 5 mg Tablet 5 mg PO Q4H PRN (Reason: Pain, Severe (7-10)) Qty: 40 0RF Continued fluticasone propion-salmeterol [Advair HFA] 115-21 mcg/actuation HFA aerosol inhaler 2 puff INHALATION Q4H PRN (Reason: Shortness Of Breath Or Wheezing) Patient Comments: inhale 2 puffs twice daily Follow up/Referrals: Sury Vieyra PA-C [[employer] Quality System Manager] - 07/03/23 11:00 am (Appt:07/03 @ 11:00[place] Sussy ACE [place] [facility] [place] Diet/Activity/Treatments Diet: Diet as Tolerated Activity: Weightbearing as tolerated. Total hip replacement precautions Cold/Heat Therapy: Ice to hip as needed for pain. Skin/Wound/Dressing Care Report to your healthcare provider any signs of infection, such as:: chills, fever, night sweats, unusual drainage and unusual redness Dressing: Leave dressing in place until follow up in office. No bathing or otherwise soaking incision. Call the office if the dressing becomes saturated inside. Visit Report/Discharge Packet Instructions: DI for Hip Replacement, DI for Prescription Opioid Use, Ondansetron, Oxycodone Stand Alone Forms: Patient Portal/API, Surgery Discharge Discharge Data Attending Provider: Wang Richmond VTE Deep Vein Thrombosis/Pulmonary Embolism Present on Admission: No
[2023-06-20] MEDS: BUDESONIDE 0.5 MG/2 ML NEB INH (07:32)
[2023-06-20] MEDS: ALBUTEROL 2.5 MG/3 ML NEB (ADULT) INH (07:33)
[2023-06-20 07:37] VITALS: PULSE 66; O2SAT 97
[2023-06-20] MEDS: ASPIRIN EC 81 MG TABLET PO (09:22)
[2023-06-20] MEDS: DOCUSATE 100 MG CAPSULE PO (09:22)
--- NOTE | 2023-06-20 09:35 | PT.IIE ---
Current Diagnoses Unilateral primary osteoarthritis, right hip (06/19/23) Surgery Performed Operation Date: 06/19/23 13:45 Actual Procedures p Total Hip Arthroplasty/Anterior Approach(Right) - Wang Richmond MD Surgical History (Last Updated 06/13/23 @ 14:00 by Keerthi Mcbride, RN) Status post total hip replacement, left (~07/30/22) Medical History (Last Updated 06/13/23 @ 14:06 by Keerthi Mcbride RN) Asthma Sinus congestion Physical Therapy Inpatient Evaluation/Re-Eval M1 PT/OT-IP Prior Functional Status Start: 06/20/23 12:02 Freq: NEEDED Status: Active Protocol: Document 06/20/23 09:35 AB (Rec: 06/20/23 12:15 AB [id number]) Medical Review Prior Functional Status Medical History Reviewed Yes Communication able to make needs known Mobility and Gait pt stated that she was independent with all mobilities and ambulation without AD Social History Household Members none Living Arrangements House Number of Floors (Floors) Two Floors Number of Stairs To Enter/Railing? one step to enter 15 steps R rail ascending to bedroom level Home Environment High Toilet,Walk in Shower, Built-In Shower Seat Home Equipment Front Wheel Walker,Raised Toilet Seat Without Armrests, Shower Seat without Backrest, Hand Held Shower,Grab Bars Near Toilet,Grab Bars In Shower Additional Social History Comment pt stated that her son will be staying with her for ~ 2 weeks to assist her M2 PT-IP Current Condition Start: 06/20/23 12:02 Freq: NEEDED Status: Active Protocol: Document 06/20/23 09:35 AB (Rec: 06/20/23 12:15 AB [id number]) Physical Therapy Current Condition Current Condition Evaluation Date 06/20/23 Treatment Diagnosis s/p R GALILEA anterior; difficulty in walking Onset Date 06/19/23 M3 PT-IP Subjective Start: 06/20/23 12:02 Freq: NEEDED Status: Active Protocol: Document 06/20/23 09:35 AB (Rec: 06/20/23 12:15 AB [id number]) Subjective Physical Therapy Visit Type Type Initial Evaluation Visit Start Time 09:35 Visit Stop Time 10:30 Total Visit Minutes 55 Number of GALLERY OR MUSEUM ATTENDANT Visits 0 Physical Therapy Visit Comments Patient Comments pt is agreeable to do PT Therapy Pain Assessment Pain When Pain Assessed During Mobility Pain Present Pain Present Pain Reported Location Right Hip Intensity 5 Scale Used Numeric (0 - 10) Pain Behaviors Guarding,Holding Area Pain Management Techniques Apply Cold,Distraction, Modification of Treatment,Re- positioning,Timing of Activity with Medications M4 PT-IP Mobility and Gait Start: 06/20/23 12:02 Freq: NEEDED Status: Active Protocol: Document 06/20/23 09:35 AB (Rec: 06/20/23 12:15 AB [id number]) PT-Bed Mobility Assessment Supine to Sit Supine to Sit Standby Assistance Sit to Supine Sit to Supine Standby Assistance PT-Transfer Assessment Sit to and From Stand Sit to and from Stand Standby Assistance,Contact Guard Assistance,1 Person Assistance,Use of Upper Extremities Equipment Transfer Assistive Device Gait Belt,Front Wheeled Walker Orthotic/Prosthetic Devices or Brace: No Transfers Transfer Destination Bed,Chair Transfer Technique ambulated Transfer Ability Level of Assist Standby Assistance,Contact Guard Assistance,1 Person Assistance,Use of Upper Extremities Comments Mobility Comments pt supine in bed and agreeable to do PT. obtained PLOF and home set up. post-op folder provided and reviewed contents . educated pt with HEP and anterior hip precautions. pt able to recall precautions. BP in supine: 96/52. pt completed supine to sit SBA. able to sit on EOB SBA. BP in sittin/57. pt completed sit to stand CGA and ambulated in room using FWW ~ 30 ft CGA. pt sat on the chair. BP checked: 113/47. pt without c/o dizziness/ lightheadedness. pt agreed to do stair climbing. completed sit to stand from the chair SBA and ambulated in the hallway ~ 150 ft using FWW SBA to occasional CGA. stair climbing training. PT educated and demonstrated stair climbing to pt. pt completed up/down platform step using FWW CGA and up/down 3 steps x 2 sets holding on to R rail with B hands CGA. pt stated that she can direct her son on how to assist her. pt ambulated back to her room using FWW SBA ~ 150 ft. pt agreed to sit up on the chair. positioned pt on the chair. call light and table placed within reach. Gait Assessment Gait Gait Assistance Required: Standby Assistance,Contact Guard Assist Distance (Feet) 150 Able to Maintain Weight Bearing Status Yes During Gait Assistive Devices Assistive Device Gait Belt,Front Wheeled Walker Orthotic/Prosthetic Devices or Brace: No Gait Deviations General Gait Pattern Decreased Feet Clearance Factors Limiting Gait Function Factors Limiting Gait Function Decreased Activity Tolerance, Decreased Strength,Limited Range of Motion,Pain,Poor Balance Stair Climbing Assessment Evaluation Level of Assist On Stairs Contact Guard Assistance Devices Stair Climbing Assistive Devices Front Wheel Walker,Right Railing Technique/Endurance Stair Climbing Direction Ascend and Descend Stair Climbing Technique Step to Step Number of Steps Climbed 3 Query Text: Stair Climbing Set # Repetitions (reps) 2 Comments Stair Climbing Comments pls refer to mobility section for details PT-Balance Assessment Sitting Balance and Reactions Static Sitting Balance Ability Normal Dynamic Sitting Balance Ability Good Standing Balance and Reactions Static Standing Balance Ability Fair Dynamic Standing Balance Ability Fair Device Used FWW M5 PT-IP Objective Assessments Start: 06/20/23 12:02 Freq: NEEDED Status: Active Protocol: Document 06/20/23 09:35 AB (Rec: 06/20/23 12:15 AB [id number]) Orientation Orientation/Cognition Level of Alertness Alert Orientation Name,Place,Situation Language Function Ability No Deficits Noted Safety Awareness Understands Safety Issues Memory Description No Deficits Noted Gross Range of Motion Lower Extremity ROM Assessment Within Functional Limits Strength Lower Extremity Strength Assessment Right Impaired Hip 3-/5 Knee 3+/5 Sensation Assessment Sensation Gross Sensation WNL Muscle Tone Muscle Tone WNL Yes M6 PT-IP Treatment Start: 06/20/23 12:02 Freq: NEEDED Status: Active Protocol: Document 06/20/23 09:35 AB (Rec: 06/20/23 12:15 AB [id number]) Physical Therapy Treatment Education Education Provided Precautions,Weight Bearing Status,Post-Op Packet,Safety M7 PT-IP Assessment and Plan Start: 06/20/23 12:02 Freq: NEEDED Status: Active Protocol: Document 06/20/23 09:35 AB (Rec: 06/20/23 12:15 AB [id number]) PT Summary Assessment and Plan Potential Rehabilitation Potential Good Status of Condition at Evaluation Stable Summary Impairments Pain,ROM,Strength,Balance,Bed Mobility,Transfers,Gait, Activity Tolerance Assessment Summary pt is a 58 y/o F s/p R GALILEA anterior approach POD1. pt has R anterior hip precautions and is WBAT. pt was able to recall precautions. pt requiring SBA with mobility using FWW and CGA for stair climbing for safety. pt plans to go home and her son will be staying with her to assist. pt has outpt PT set up. pt may go home when medically stable . Goals Bed Mobility Goal Independent Transfer Goal Independent,Front Wheeled Walker Gait Goal Independent,Front Wheel Walker Gait Distance 250 Other Goals up/down 1 platform step using FWW mod I up/down 15 steps R rail mod I Days to Meet Goals 5 Frequency of Treatment Frequency Of Treatment Twice a Day Treatment Plan Physical Therapy Treatment Plan Bed Mobility Training,Transfer Training,Gait Training, Therapeutic Exercise,Balance Retraining,Post Op Education, Discharge Planning,Hot or Cold Pack,Neuromuscular Re-ed, Coordination Retraining,Manual Therapy Precautions Anterior Hip Precautions No Hip Extension,No Hip External Rotation Weight Bearing Status Weight Bearing Status Weight Bear as Tolerated Allowed Weight Bearing Amount (enter % RLE WBAT or #) (%) Recommendations To Nursing Amount of Assist Needed 1 Person Assist Discharge Recommendations PT Discharge Recommendations Home with Assistance, Outpatient PT Transportation Needs at Discharge Private Vehicle
--- NOTE | 2023-06-20 12:15 | CM.DANOTE ---
DCP Assessment Note Pt is a 58yo F here following planned right hip surg with Dr Robles on 06.19.23 PCP none listed Payer Catherine and Medicaid ASSEMBLER WATCH TRAIN reviewed EMR. Per PT, rec home with assistance and OP PT. Per ortho PA, cleared to dc home today. Per RN, son to support at home, no identified CM needs. Plan: home with son this afternoon. No identified CM needs. CM team will continue to follow as needed. [facility] Discharge Planning/Care Management CM Discharge Assessment Start: 06/20/23 12:04 Freq: Status: Active Protocol: Document 06/20/23 12:04 SL (Rec: 06/20/23 12:13 SL [id number]) Discharge Planning Assessment Assigned Legislative Analyst [facility] DPOA/Assigned Designee Name Gus (son) Contact Information [phone] Advance Directives? No Advance Directives on File No History Provided By Medical Record Prior Living Arrangements House Household Members none Willing to Return to Facility? No Barriers to Discharge No Discharge Plan Home Transportation Arrangement Family will transport Referrals Initiated None needed Additional Comment Home with sons and outpatient Physical Therapy Whiteboard Updated in Patient Room with No name and ext. # of Legislative Analyst Review Status In Process Next Review Type Continued Stay Review Pre-Anesthesia Assessment Start: 06/13/23 13:59 Freq: Status: Active Protocol: Document 06/13/23 13:59 CAB (Rec: 06/13/23 14:22 CAB [id number]) Pre-Anesthesia Assessment Patient Information Reviewed Via Phone Assessment Assessment Completed With Patient Diagnostic Results BMP/CMP,CBC,EKG Comment Labs/EKG @ 05/08/23 Primary Care Provider Jordan Comment PCP clearance scanned Medical Clearance Received Yes Seen Specialist in Last 12 Months Yes Specialist Seen Orthopedist Primary Language Mozambican Preferred Language Mozambican Tube Cleaner Required No Height 162.56 cm Weight 77.111 kg Body Mass Index (BMI) 29.2 Hearing Ability Normal Visual Assist Magnifying Glass Dentition Type Teeth, Natural Present Barriers to Learning None Hx Anesthesia Reactions No Hx Family Anesthesia Reaction No Hx Malignant Hyperthermia No Hx Blood Transfusions No Anesthesia Review Requested No Machine Filler Servicer No alcohol intake current alcohol intake frequency a few times a week Smoking Status Never smoker Substance Use Type does not use Pain Present Pain Reported Musculoskeletal Symptoms Abnormal Gait,Difficulty Walking,Joint Pain History of Falling (Recent or History of Yes ) Patient is completely paralyzed or No completely immobile Mental Status Oriented to own ability Is patient on oxygen? No Does patient have LEWIS/SOB Yes: Related to Asthma Hx Sleep Apnea No Currently Taking a Beta Carmen No Hx Chest Pain No Hx SOB Yes: Related to Asthma Hx Syncope or Dizziness No Anti-Coagulant Therapy No Has a Rail Walker No Cardiac Testing No Hx Pacemaker/ICD No Pacemaker Rep Required? No Diet Type At Home Regular Dysphagia Yes: Pills Gastrointestinal Symptoms None Urinary Catheter Present No Hx Urinary Self Catheterization No Diabetes No HgbA1C 5.7 Date 05/08/23 Patient No Lactating No Hx Drug Resistant Organism No Presence of External or Internal Medical Yes: Left hip prosthesis Devices Received a COVID vaccine? No Marital Status / Lives With none Current Living Arrangements House Number of Floors (Floors) Two Floors Support System Child/Children Comment Son will stay with pt to assist with care at DC Does the Patient Have Assistance After Yes Surgery Patient Discharge Plan Description Return Home Comment Pt advised possible overnight length of stay per surgeon Feels Safe in Current Environment Yes Been Physically Hurt or Threatened By a No Person in Current Environment Do you have thoughts of harming yourself None or others? Are you currently considering suicide? No Do you have a plan to hurt yourself or No Plan others? Do You Have Any Spiritual Beliefs That No May Affect Your HC Choices? Do You Have Any Cultural Practices That No May Affect Your HC Choices? Comment Religion Who Can We Speak to About Patient's Care Family, friends Identifying Code for Release of Patient Declines to issue Information Health Care Proxy/Next of Kin Gus (son) Health Care Proxy Emergency Contact Name Gus (son) Emergency Contact Advance Directives? No Power of Brand Ambassador Promotional Model No PAC Instructions Do not shave/clip surgical site,Durable medical equipment ,Medications to take/avoid, Nasal antibiotic,No ETOH/ petroleum product on skin DOS, NPO,Sensory aids,Sturdy shoes/ comfortable clothes,Do not bring valuables and remove jewelry
--- NOTE | 2023-06-20 13:34 | PC.NURSE ---
Pt is dressed and ready for discharge home with Son. IV has been removed. Went over d/c instructions with Pt - discussed d/c meds, time of last dose, reviewed stroke education, s/s of infection, reminded Pt to drink plenty of fluids to prevent constipation or dehydration, no driving while taking narcotics and until cleared by Ortho MD. Do not exceed 3000mg of acetaminophen in 24 hours as it is toxic to the liver, follow hip precautions, and follow up with your Ortho MD as scheduled. Pt denied further questions and was taken out via wc by YOU[employer] PASTOR to POV with Son and all belongings.
== END 2023-06-20 13:38 | disposition home or self-care (01) ==
LOC: OR 10:29 → AC 10:33
PROVIDERS: Referring Provider Orthopaedic Surgery Adult Reconstructive Orthopaedic Surgery; Visit Provider Orthopaedic Surgery Adult Reconstructive Orthopaedic Surgery
PROC: (CPT 27130; principal; 2023-06-19 13:45)
DX: M16.11 Unilateral primary osteoarthritis, right hip (principal); M25.751 Osteophyte, right hip
CPT/HCPCS: 27130; 36415; 73502; 76000; 85014; 85018; 94640; 97116; 97161; 97530; C1776; J0690; J1100; J1170; J2250; J2405; J2704; J3010; J7613

== ENCOUNTER → 2023-11-20 11:32 | Outpatient (CLI) | payer OTHER, MEDICAID, SELFPAY ==
[2023-06-19 11:39] VITALS: BMI 29.2
== END ==
PROVIDERS: Visit Provider Nurse Practitioner Family
DX: R30.0 Dysuria (principal); R39.15 Urgency of urination
CPT/HCPCS: 81002; 87077; 87086; 87186; 87210

== ENCOUNTER 2024-05-13 20:33 | Emergency (ER) | payer OTHER, MEDICAID, SELFPAY ==
[2023-06-19 11:39] VITALS: BMI 29.2
[2024-05-13 20:37] VITALS: BP 187/107; PULSE 70; RESP 18; TEMP 36.6; O2SAT 99; BMI 29.9
--- NOTE | 2024-05-13 20:44 | DI.RAD.S_ITS ---
PROCEDURE: XR ELBOW LT MIN 3V INDICATIONS: fell and injured left elbow to wrist TECHNIQUE: 3 views of the elbow were acquired. COMPARISON: None. FINDINGS: Bones: Questionable irregularity of the coronoid process. No suspicious bony lesions. Soft tissues: Small elbow joint effusion. No suspicious soft tissue calcifications. IMPRESSION: Small joint effusion with questionable irregularity of the coronoid process, may represent acute fracture. Dictated by: Tang Zamora M.D. on 05/13/2024 at 21:27 Approved by: Tang Zamora M.D. on 05/13/2024 at 21:29
--- NOTE | 2024-05-13 20:45 | DI.RAD.S_ITS ---
PROCEDURE: XR WRIST LT MIN 3V INDICATIONS: fell and landed on Left wrist/elbow TECHNIQUE: 4 views of the wrist were acquired. COMPARISON: None. FINDINGS: Bones: No fractures or dislocations. No suspicious bony lesions. Soft tissues: No suspicious soft tissue calcifications. IMPRESSION: No acute osseous abnormality. If pain persists with conservative management, consider repeat x-ray in 10-14 days or cross-sectional imaging. Dictated by: Tang Zamora M.D. on 05/13/2024 at 21:29 Approved by: Tang Zamora M.D. on 05/13/2024 at 21:30
--- NOTE | 2024-05-13 21:07 | ED_ITS ---
HPI - Extremity Injury (Upper) General Chief Complaint: Extremity Injury, Upper Stated Complaint: fall, lt elbow injury Time Seen by Provider: 05/13/24 20:51 Source: patient Mode of arrival: Ambulatory History of Present Illness HPI narrative: 59-year-old female presents by private vehicle for left elbow injury. Patient was walking when she tripped and fell, landing on her elbow and on her wrist. She was reporting some soreness at the base of her left wrist, but the majority of her pain is in her left elbow. She has difficulty moving her arm due to the pain. Denies numbness or weakness. Related Data Home Medications Medication Instructions Recorded Confirmed fluticasone propionate 115 2 puff inhalation Q4H PRN 07/29/22 06/19/23 mcg-salmeterol 21 mcg/actuation Shortness Of Breath Or Wheezing HFA inhaler (Advair HFA) Previous Rx's Medication Instructions Recorded acetaminophen 325 mg tablet 650 mg (2 x 325 mg) PO Q6H 06/20/23 inflammation #100 tabs aspirin 81 mg tablet,delayed 81 mg PO BID #90 tabs 06/20/23 release ibuprofen 600 mg tablet 600 mg PO TID #90 tabs 06/20/23 ondansetron 4 mg disintegrating 4 mg PO Q6H PRN Nausea #10 tabs 06/20/23 tablet oxycodone 5 mg tablet 5 mg PO Q4H PRN Pain, Severe 06/20/23 (7-10) #40 tabs phenazopyridine 200 mg tablet 200 mg PO TID 6 doses #6 tabs 11/20/23 (Pyridium) hydrocodone 5 mg-acetaminophen 325 1 tab PO Q8H PRN pain #12 tabs 05/13/24 mg tablet Allergies Allergy/AdvReac Type Severity Reaction Status Date / Time No Known Drug Allergies Allergy Verified 02/22/23 09:33 Patient History Medical History Sinus congestion Asthma Surgical History Status post total hip replacement, left (~07/30/22) Family History Mother Diabetes mellitus Father No problems noted. Social History household members: none Smoking Status: Never smoker alcohol intake: current substance use type: does not use Smoking Status: Never smoker alcohol intake frequency: a few times a week Substance Use Type: does not use Exam Initial Vital Signs Initial Vital Signs: Vital Signs Temperature 97.9 F 05/13/24 20:37 Pulse Rate 70 05/13/24 20:37 Respiratory Rate 18 05/13/24 20:37 Blood Pressure 187/107 H 05/13/24 20:37 Pulse Oximetry 99 05/13/24 20:37 Oxygen Delivery Method Room Air 05/13/24 20:37 Const: Awake, alert, no acute distress, nontoxic appearing MSK: L elbow swelling, decreased ROM due to pain. Able to wiggle all fingers, palpable radial pulses, full ROM L wrist Skin: Warm, Dry, intact, no rashes Neuro: AO x3, CN II-XII grossly intact, moves all extremities Course Orders Ordered: ED Orders 05/13/24 20:43 Consult to DIRECTOR OF ASSESSMENT - Metal Handler Stat 05/13/24 20:44 XR elbow LT min 3V Stat 05/13/24 20:45 XR wrist LT min 3V Stat 05/13/24 21:54 CT UE LT wo con Stat Discontinued Medications Acetaminophen (Acetaminophen 325 Mg Tablet) 975 mg PO NOW ONE Stop: 05/13/24 21:09 Last Admin: 05/13/24 21:15 Dose: 975 mg Documented By: FARHAT Hydrocodone Bitart/Acetaminophen (Hydrocodone/Acet 5/325 Prepack) 1 bottle MISC DIRECTED ONE Stop: 05/13/24 22:41 Last Admin: 05/13/24 23:18 Dose: 1 bottle Documented By: FARHAT Ketorolac Tromethamine (Ketorolac 30 Mg/Ml Vial) 30 mg IM NOW ONE Stop: 05/13/24 21:09 Last Admin: 05/13/24 21:15 Dose: 30 mg Documented By: FARHAT Vital Signs Vital signs: Vital Signs - 8 hr 05/13/24 20:37 05/13/24 23:20 Temperature 97.9 F Pulse Rate 70 66 Respiratory Rate 18 14 Blood Pressure 187/107 H 137/78 Pulse Oximetry 99 98 Oxygen Delivery Method Room Air Room Air MDM - Extremity Injury (Upper) Imaging Data Extremity x-ray #1: Radiologist's Impression: PROCEDURE: XR ELBOW LT MIN 3V INDICATIONS: fell and injured left elbow to wrist TECHNIQUE: 3 views of the elbow were acquired. COMPARISON: None. FINDINGS: Bones: Questionable irregularity of the coronoid process. No suspicious bony lesions. Soft tissues: Small elbow joint effusion. No suspicious soft tissue calcifications. IMPRESSION: Small joint effusion with questionable irregularity of the coronoid process, may represent acute fracture. Dictated by: Tang Zamora M.D. on 05/13/2024 at 21:27 Approved by: Tang Zamora M.D. on 05/13/2024 at 21:29 Extremity x-ray #2: Radiologist's Impression: PROCEDURE: XR WRIST LT MIN 3V INDICATIONS: fell and landed on Left wrist/elbow TECHNIQUE: 4 views of the wrist were acquired. COMPARISON: None. FINDINGS: Bones: No fractures or dislocations. No suspicious bony lesions. Soft tissues: No suspicious soft tissue calcifications. IMPRESSION: No acute osseous abnormality. If pain persists with conservative management, consider repeat x-ray in 10-14 days or cross-sectional imaging. Dictated by: Tang Zamora M.D. on 05/13/2024 at 21:29 Approved by: Tang Zamora M.D. on 05/13/2024 at 21:30 CT - cervical spine: Radiologist's Impression: PROCEDURE: CT UE LT WO CON INDICATIONS: L ELBOW INJ, POSS CORONOID FX TECHNIQUE: Noncontrast 1-1.5 mm axial sections were acquired through the elbow joint, with coronal and sagittal reformats. COMPARISON: None. FINDINGS: Image quality: Excellent. Bones: Mildly displaced comminuted fracture of the coronoid process. No other acute fractures are seen. Soft tissues: Small elbow joint effusion. IMPRESSION: Mildly displaced comminuted fracture of the coronoid process. Dictated by: Tang Zamora M.D. on 05/13/2024 at 22:17 Approved by: Tang Zamora M.D. on 05/13/2024 at 22:19 [facility] Narrative Medical decision making narrative: GLF with elbow and wrist injury. Neurovascularly intact. XR with possible coronoid process fx, confirmed on CT LUE. Placed in posterior long arm splint and placed in sling. RICE instructions and splint care instructions counseled at bedside. PRN pain medications sent to pharmacy of choice. Discharge Plan Departure Patient Disposition: Home Clinical Impression: Elbow fracture, left Instructions: DI for Elbow Fracture Activity Restrictions/Additional Instructions: You have a fracture of your left coronoid process, which is part of your elbow. Wear the splint until seen by Orthopedic surgery. Use the sling for comfort. Take 1000 mg of Tylenol and 400 mg of ibuprofen every 6-8 hours per label instructions as needed for pain. If the [id number] medications do not control your pain then a short course of pain medication has been sent to your pharmacy. Do not take this medication with alcohol or before driving as this can increase your risk of fall and accidents. This medicine also causes constipation, so take a daily stool softener when taking this medication. Prescriptions: New hydrocodone-acetaminophen 5-325 mg tablet 1 tab PO Q8H PRN (Reason: pain) Qty: 12 0RF No Action phenazopyridine [Pyridium] 200 mg tablet 200 mg PO TID 0 Days Qty: 6 0RF fluticasone propion-salmeterol [Advair HFA] 115-21 mcg/actuation HFA aerosol inhaler 2 puff INHALATION Q4H PRN (Reason: Shortness Of Breath Or Wheezing) Patient Comments: inhale 2 puffs twice daily acetaminophen 325 mg Tablet 650 mg PO Q6H Qty: 100 0RF aspirin 81 mg Tablet,Delayed Release (Dr/Ec) 81 mg PO BID Qty: 90 0RF ibuprofen 600 mg Tablet 600 mg PO TID Qty: 90 0RF ondansetron 4 mg Tablet,Disintegrating 4 mg PO Q6H PRN (Reason: Nausea) Qty: 10 0RF oxycodone 5 mg Tablet 5 mg PO Q4H PRN (Reason: Pain, Severe (7-10)) Qty: 40 0RF Referrals: Ignacio Pope MD [Physician] - Miscellaneous,MD Emmy [Primary Care Provider] - Stand Alone Forms: Patient Portal/API/Survey
[2024-05-13] MEDS: KETOROLAC 30 MG/ML VIAL IM (21:15)
[2024-05-13] MEDS: ACETAMINOPHEN 325 MG TABLET 975 MG PO (21:15)
--- NOTE | 2024-05-13 21:54 | DI.CT.S_ITS ---
PROCEDURE: CT UE LT WO CON INDICATIONS: L ELBOW INJ, POSS CORONOID FX TECHNIQUE: Noncontrast 1-1.5 mm axial sections were acquired through the elbow joint, with coronal and sagittal reformats. COMPARISON: None. FINDINGS: Image quality: Excellent. Bones: Mildly displaced comminuted fracture of the coronoid process. No other acute fractures are seen. Soft tissues: Small elbow joint effusion. IMPRESSION: Mildly displaced comminuted fracture of the coronoid process. Dictated by: Tang Zamora M.D. on 05/13/2024 at 22:17 Approved by: Tang Zamora M.D. on 05/13/2024 at 22:19
[2024-05-13] MEDS: HYDROCODONE/ACET 5/325 PREPACK 1 BOTTLE MISC (23:18)
[2024-05-13 23:20] VITALS: BP 137/78; PULSE 66; RESP 14; O2SAT 98
== END 2024-05-13 23:20 | disposition home or self-care (01) ==
PROVIDERS: Emergency Provider Emergency Medicine
DX: S52.042A Displaced fracture of coronoid process of left ulna, initial encounter for closed fracture (principal); W01.0XXA Fall on same level from slipping, tripping and stumbling without subsequent striking against object, initial encounter
CPT/HCPCS: 29105; 73080; 73110; 73200; 96372; 99284; J1885